=== PATIENT | female | born 1975 | race Caucasian/White ===

== ENCOUNTER 2018-08-17 18:43 | Inpatient (IN) | payer BC, SELFPAY ==
[2018-08-17] VITALS (15 sets, daily range): BP systolic 114–146; BP diastolic 62–111; PULSE 54–80; RESP 12–30; TEMP 36.3–37; O2SAT 81–100
[2018-08-17] MEDS: HYDROmorphone 2 MG/ML VIAL 1 MG IVP ×2 (19:24→19:57)
[2018-08-17] MEDS: Ondansetron 4 MG/2 ML VIAL IVP (19:25)
[2018-08-17] MEDS: Lactated Ringers 1,000 ML 125 ML IV (19:25)
[2018-08-17 19:41] LABS: Abs Immature Grans 0.07 k/cumm (0.0-0.09); Absolute Basophil Count 0.09 k/cumm (0.0-0.2); Absolute Eosinophil Count 0.27 k/cumm (0.0-0.7); Absolute Lymphocyte Count 3.19 k/cumm (1.2-3.4); Absolute Monocyte Count 0.87 k/cumm (0.11-0.7); Absolute Neutrophil Count 10.33 k/cumm (1.2-6.7); Basophils % 0.6; Eosinophils % 1.8; HCT 42.7 % (36.0-46.0); HGB 14.7 g/dL (12.0-15.5); Immature Grans % 0.5; Lactate 2.7 mmol/L (0.6-1.4); Lymphocytes % 21.5; Mean Corp. HGB Concentration 34.4 g/dL (32.0-36.0); Mean Corpuscular Hemoglobin 29.9 pg (27.0-33.0); Mean Corpuscular Volume 86.8 fL (80-95); Mean Platelet Volume 10.1 fL (8.0-11.0); Monocytes % 5.9; Neutrophils % 69.7; Platelet Count 354 x1000/uL (130-400); RBC 4.92 m/cumm (4.00-5.20); RBC Distribution Width 13.1 % (11.7-14.6); White Blood Cell Count 14.82 k/cumm (4.4-10.8)
--- NOTE | 2018-08-17 19:49 | DI.CT_ITS ---
SYMPTOM/DIAGNOSIS: RUQ ABDOMINAL TENDERNESS AND PAIN CT ABDOMEN AND PELVIS: The gallbladder is distended and shows mild wall thickening. A few stones are seen. There is mild intra and extra hepatic biliary dilatation. The pancreas, liver, spleen, and adrenals are unremarkable. There are a few small renal cysts. There is no evidence of stones or hydronephrosis. The bladder, uterus and ovaries are unremarkable. Tubal ligation clips are noted. The appendix appears normal. There is no bowel dilatation or inflammatory change. IMPRESSION: Distended gallbladder with a few stones. The findings could represent acute cholecystitis.
--- NOTE | 2018-08-17 19:50 | W.ED.GENAD ---
Discharge Plan Disposition Patient Disposition: [facility] INPATIENT Condition: Stable Discharge Details Chief Complaint: Abd Prob Clinical Impression: Acute abdominal pain in right upper quadrant, Lactic acid acidosis, Leukocytosis (leucocytosis) Primary Care Provider: ELIEZER DUFFY ED Provider: Mic Duran Home Meds and New Rx's Prescriptions: No Action montelukast [Singulair] 10 MG tablet 10 mg PO DAILY RF: 0 Zyrtec 10 MG capsule 10 mg PO DAILY RF: 0 albuterol sulfate 8.5 GM HFA aerosol inhaler 2 puff Inhalation PRN RF: 0 Medical Decision Making 19:50 --42-year-old female presents with severe right upper quadrant abdominal pain and associated nausea. Patient writhing in pain on initial exam. IV access was obtained and she was administered Dilaudid 1 mg IV and zofran IV. Pain did improve initially. Now returning. Will give additional dilaudid. Bedside [id number] ultrasound reveals dilated gallbladder with gallstones. Labs reviewed and leukocytosis and lactic acidosis noted. Plan to give crystalloid bolus. Awaiting chemistry. I have called to request pharmacy technologist but does not seem likely of technologist availability. Plan to obtain CT of the abdomen pelvis to assess for acute surgical pathology. I called and spoke with Dr. Fairbanks, relayed ED presentation and course and requested consult. 20:30 -- Care transitioned to Dr. Fairbanks who is ordering abx, will follow-up on CT and admit the patient. [facility] General Date/Time Provider Initiated Documentation: 08/17/18 19:14. Limitations to Documentation: no limitations. Information obtained by: patient. HPI Narrative: 42 yo f with history of asthma presents with chief complaint of abdominal pain. Patient notes around 230 today she suddenly developed severe right upper quadrant abdominal pain. Pain has waxed and waned but remains severe. Pain is described as sharp. Worse in certain positions. Worse with deep breath. She has associated nausea. Patient notes pain started after meal that was heavy in fat. Patient has had similar symptoms, less severe, over the past few months after having dinner. Patient notes that she drinks alcohol infrequently and did have some alcohol last night. Related Data Home Medications Medication Instructions Recorded Confirmed Zyrtec 10 mg PO DAILY 03/06/14 08/17/18 albuterol sulfate 2 puff INHALATION PRN 03/06/14 08/17/18 montelukast [Singulair] 10 mg PO DAILY 03/06/14 08/17/18 Allergies Allergy/AdvReac Type Severity Reaction Status Date / Time Penicillins Allergy Severe Anaphylaxsi Unverified 08/17/18 18:57 s General Stated Complaint: Abd Prob MINDA: 3 Review of Systems Review of Systems All systems reviewed & are unremarkable except as noted in HPI and below Constitutional Denies fever(s) Cardiovascular Denies chest pain and Denies dyspnea Respiratory Denies dyspnea Gastrointestinal Reports as per HPI [facility] Medical History Asthma (Chronic) Surgical History Ligation of fallopian tube Social History Smoking/Tobacco Use Status: Never Exam Const General: cooperative and uncomfortable Orientation: alert and awake HENMT Head: normocephalic and atraumatic Mouth: moist mucous membranes Eyes Conjunctivae: normal conjunctivae Sclera: normal sclerae EOM: EOM intact bilaterally Neck Neck: no JVD Resp Auscultation: clear to auscultation bilaterally, no rales, no rhonchi and no wheezes Cardio Jugular venous pressure: no JVD Rate: regular rate and not tachycardic Rhythm: regular rhythm GI Palpation: soft, not firm, no guarding, no masses, not rigid and tender in the RUQ and Gee's sign positive; with no rebound tenderness Auscultation: normal bowel sounds Skin General skin exam: no rashes or lesions noted Neuro General: alert, awake, oriented x3 and tone normal Extrem General: no edema Psych Appearance: grossly normal Mental Status: mental status grossly normal Speech and Movement: speech and movement normal Course Vital Signs Temperature 37.0 C 08/17/18 18:50 Pulse 64 08/17/18 18:50 Respiratory Rate 22 08/17/18 18:50 Blood Pressure 146/111 H 08/17/18 18:50 Pulse Oximetry 100 08/17/18 18:50 Temperature 37.0 C 08/17/18 18:50 Temperature Source Temporal Artery Scan 08/17/18 18:50 Pulse 64 08/17/18 18:50 Respiratory Rate 22 08/17/18 18:50 Respiratory Effort 08/17/18 18:50 Blood Pressure 146/111 H 08/17/18 18:50 Pulse Oximetry 100 08/17/18 18:50 Oxygen Delivery Method Room Air 08/17/18 18:50 Oxygen Flow Rate 0 08/17/18 18:50 Pain Level 10 08/17/18 19:24 Lab/Test Results Lab/Test Results: Laboratory Tests Range/Units 08/17/18 08/17/18 19:25 19:25 WBC (4.4-10.8) k/cumm 14.82 H RBC (4.00-5.20) m/cumm 4.92 Hgb (12.0-15.5) g/dL 14.7 Hct (36.0-46.0) % 42.7 MCV (80-95) fL 86.8 MCH (27.0-33.0) pg 29.9 MCHC (32.0-36.0) g/dL 34.4 RDW (11.7-14.6) % 13.1 Plt Count (130-400) x1000/uL 354 MPV (8.0-11.0) fL 10.1 Immature Gran % 0.5 Neutrophils % 69.7 Lymphocytes % 21.5 Monocytes % 5.9 Eosinophils % 1.8 Basophils % 0.6 Absolute Neutrophils (1.2-6.7) k/cumm 10.33 H Absolute Lymphocytes (1.2-3.4) k/cumm 3.19 Absolute Monocytes (0.11-0.7) k/cumm 0.87 H Absolute Eosinophils (0.0-0.7) k/cumm 0.27 Absolute Basophils (0.0-0.2) k/cumm 0.09 Lactate (0.6-1.4) mmol/L 2.7 H*
--- NOTE | 2018-08-17 19:53 | ED.GENADUL_ITS ---
Discharge Plan Disposition Patient Disposition: [facility] INPATIENT Condition: Stable Discharge Details Chief Complaint: Abd Prob Clinical Impression: Acute abdominal pain in right upper quadrant, Lactic acid acidosis, Leukocytosis (leucocytosis) Primary Care Provider: ELIEZER DUFFY ED Provider: Mic Duran Home Meds and New Rx's Prescriptions: No Action montelukast [Singulair] 10 MG tablet 10 mg PO DAILY RF: 0 Zyrtec 10 MG capsule 10 mg PO DAILY RF: 0 albuterol sulfate 8.5 GM HFA aerosol inhaler 2 puff Inhalation PRN RF: 0 Medical Decision Making 19:50 --42-year-old female presents with severe right upper quadrant abdominal pain and associated nausea. Patient writhing in pain on initial exam. IV access was obtained and she was administered Dilaudid 1 mg IV and zofran IV. Pain did improve initially. Now returning. Will give additional dilaudid. Bedside [id number] ultrasound reveals dilated gallbladder with gallstones. Labs reviewed and leukocytosis and lactic acidosis noted. Plan to give crystalloid bolus. Awaiting chemistry. I have called to request electroencephalographic technologist but does not seem likely of technologist availability. Plan to obtain CT of the abdomen pelvis to assess for acute surgical pathology. I called and spoke with Dr. Fairbanks, relayed ED presentation and course and requested consult. 20:30 -- Care transitioned to Dr. Fairbanks who is ordering abx, will follow-up on CT and admit the patient. [facility] General Date/Time Provider Initiated Documentation: 08/17/18 19:14 . Limitations to Documentation: no limitations . Information obtained by: patient . HPI Narrative: 42 yo f with history of asthma presents with chief complaint of abdominal pain. Patient notes around 230 today she suddenly developed severe right upper quadrant abdominal pain. Pain has waxed and waned but remains severe. Pain is described as sharp. Worse in certain positions. Worse with deep breath. She has associated nausea. Patient notes pain started after meal that was heavy in fat. Patient has had similar symptoms, less severe, over the past few months after having dinner. Patient notes that she drinks alcohol infrequently and did have some alcohol last night. Related Data Home Medications Medication Instructions Recorded Confirmed Zyrtec 10 mg PO DAILY 03/06/14 08/17/18 albuterol sulfate 2 puff INHALATION PRN 03/06/14 08/17/18 montelukast [Singulair] 10 mg PO DAILY 03/06/14 08/17/18 Allergies Allergy/AdvReac Type Severity Reaction Status Date / Time Penicillins Allergy Severe Anaphylaxsi Unverified 08/17/18 18:57 s General Stated Complaint: Abd Prob MINDA: 3 Review of Systems Review of Systems All systems reviewed & are unremarkable except as noted in HPI and below Constitutional Denies fever(s) Cardiovascular Denies chest pain and Denies dyspnea Respiratory Denies dyspnea Gastrointestinal Reports as per HPI [facility] Medical History Asthma (Chronic) Surgical History Ligation of fallopian tube Social History Smoking/Tobacco Use Status: Never Exam Const General: cooperative and uncomfortable Orientation: alert and awake HENMT Head: normocephalic and atraumatic Mouth: moist mucous membranes Eyes Conjunctivae: normal conjunctivae Sclera: normal sclerae EOM: EOM intact bilaterally Neck Neck: no JVD Resp Auscultation: clear to auscultation bilaterally, no rales, no rhonchi and no wheezes Cardio Jugular venous pressure: no JVD Rate: regular rate and not tachycardic Rhythm: regular rhythm GI Palpation: soft, not firm, no guarding, no masses, not rigid and tender in the RUQ and Gee's sign positive; with no rebound tenderness Auscultation: normal bowel sounds Skin General skin exam: no rashes or lesions noted Neuro General: alert, awake, oriented x3 and tone normal Extrem General: no edema Psych Appearance: grossly normal Mental Status: mental status grossly normal Speech and Movement: speech and movement normal Course Vital Signs Temperature 37.0 C 08/17/18 18:50 Pulse 64 08/17/18 18:50 Respiratory Rate 22 08/17/18 18:50 Blood Pressure 146/111 H 08/17/18 18:50 Pulse Oximetry 100 08/17/18 18:50 Temperature 37.0 C 08/17/18 18:50 Temperature Source Temporal Artery Scan 08/17/18 18:50 Pulse 64 08/17/18 18:50 Respiratory Rate 22 08/17/18 18:50 Respiratory Effort 08/17/18 18:50 Blood Pressure 146/111 H 08/17/18 18:50 Pulse Oximetry 100 08/17/18 18:50 Oxygen Delivery Method Room Air 08/17/18 18:50 Oxygen Flow Rate 0 08/17/18 18:50 Pain Level 10 08/17/18 19:24 Lab/Test Results Lab/Test Results: Laboratory Tests Range/Units 08/17/18 08/17/18 19:25 19:25 WBC (4.4-10.8) k/cumm 14.82 H RBC (4.00-5.20) m/cumm 4.92 Hgb (12.0-15.5) g/dL 14.7 Hct (36.0-46.0) % 42.7 MCV (80-95) fL 86.8 MCH (27.0-33.0) pg 29.9 MCHC (32.0-36.0) g/dL 34.4 RDW (11.7-14.6) % 13.1 Plt Count (130-400) x1000/uL 354 MPV (8.0-11.0) fL 10.1 Immature Gran % 0.5 Neutrophils % 69.7 Lymphocytes % 21.5 Monocytes % 5.9 Eosinophils % 1.8 Basophils % 0.6 Absolute Neutrophils (1.2-6.7) k/cumm 10.33 H Absolute Lymphocytes (1.2-3.4) k/cumm 3.19 Absolute Monocytes (0.11-0.7) k/cumm 0.87 H Absolute Eosinophils (0.0-0.7) k/cumm 0.27 Absolute Basophils (0.0-0.2) k/cumm 0.09 Lactate (0.6-1.4) mmol/L 2.7 H*
[2018-08-17 19:54] LABS: ALT 18 U/L (12-78); AST 15 U/L (15-37); Albumin 4.4 g/dL (3.4-5.0); Alkaline Phosphatase 105 U/L (46-116); Anion Gap 15.3 mmol/L (3-11); BUN 17 mg/dL (7-18); Bilirubin, Total 0.4 mg/dL (0.2-1.0); CO2 25.7 mmol/L (21.0-32.0); CREATININE 1.05 mg/dL (0.55-1.02); Calcium 9.6 mg/dL (8.5-10.1); Chloride 100 mmol/L (98-107); Estimated GFR 57.47 (mL/min/1.73m2); Glucose 109 mg/dL (70-100); Lipase 267 U/L (73-393); Potassium 3.1 mmol/L (3.5-5.1); Sodium 141 mmol/L (136-145); Total Protein 8.6 g/dL (6.4-8.2)
[2018-08-17] MEDS: Lactated Ringers 1,000 ML 1000 ML IV (20:15)
--- NOTE | 2018-08-17 20:23 | W.PM.HP.N ---
Date of service: 08/17/18 Time of Service: 20:24 Assessment and Plan (1) Acute abdominal pain in right upper quadrant: Start date: 08/17/18 Start time: 20:29 Current visit: Yes Status: Acute pt condition, exam and labs are consistent with acute cholecystitis pt to get CT start iv antibiotics IVF-LR 125cc/hr bedside US done +murphys sign, ?sludge would like a formal in am to better visualize the GB (2) Lactic acid acidosis: Start date: 08/17/18 Start time: 20:30 Current visit: Yes Status: Acute IVF hydration and antibiotics (3) High anion gap metabolic acidosis: Start date: 08/17/18 Start time: 20:31 Current visit: Yes Status: Acute ivf (4) Leukocytosis (leucocytosis): Start date: 08/17/18 Start time: 20:32 Current visit: Yes Status: Acute start antibiotics (5) Hypokalemia: Start date: 08/17/18 Start time: 20:31 Current visit: Yes Status: Acute will replace History of Present Illness Chief Complaint: pt was eating sloopy joes, turkmen fries, brownie and spiked seltzer Narrative: presents with ruq pain she claims she has had this pain before Review of Systems Constitutional Reports as per HPI Gastrointestinal Reports as per HPI and Reports abdominal pain PFSH Surgical History Ligation of fallopian tube Social History Smoking/Tobacco Use Status: Never Meds Home Medications Medication Instructions Recorded Confirmed Type Zyrtec 10 mg PO DAILY 03/06/14 08/17/18 History albuterol sulfate 2 puff INHALATION PRN 03/06/14 08/17/18 History montelukast [Singulair] 10 mg PO DAILY 03/06/14 08/17/18 History Allergies Allergy/AdvReac Type Severity Reaction Status Date / Time Penicillins Allergy Severe Anaphylaxsi Unverified 08/17/18 18:57 s Exam Const General: cooperative Nutritional Appearance: obese Orientation: alert, awake and oriented x3 GI Inspection: normal to inspection and obesity Palpation: guarding in the RUQ Percussion: normal to percussion Auscultation: normal bowel sounds Abdomen image: 1. pain Results Labs : 08/17/18 19:25 08/17/18 19:25 Laboratory Results - last 24 hr 08/17/18 08/17/18 08/17/18 19:25 19:25 19:25 WBC 14.82 H RBC 4.92 Hgb 14.7 Hct 42.7 MCV 86.8 MCH 29.9 MCHC 34.4 RDW 13.1 Plt Count 354 MPV 10.1 Immature Gran % 0.5 Neutrophils % 69.7 Lymphocytes % 21.5 Monocytes % 5.9 Eosinophils % 1.8 Basophils % 0.6 Absolute Neutrophils 10.33 H Absolute Lymphocytes 3.19 Absolute Monocytes 0.87 H Absolute Eosinophils 0.27 Absolute Basophils 0.09 Sodium 141 Potassium 3.1 L Chloride 100 Carbon Dioxide 25.7 Anion Gap 15.3 H BUN 17 Creatinine 1.05 H Estimated GFR/1.73 m2 57.47 Glucose 109 H Lactate 2.7 H* Calcium 9.6 Total Bilirubin 0.4 AST 15 ALT 18 Alkaline Phosphatase 105 Total Protein 8.6 H Albumin 4.4 Lipase 267 Last Vital Signs Temp 37.0 C 08/17/18 18:50 Pulse 64 08/17/18 18:50 Resp 22 08/17/18 18:50 BP 146/111 H 08/17/18 18:50 Pulse Ox 100 08/17/18 18:50
[2018-08-17] MEDS: Omnipaque 350 MG/ML 100 ML BTL IJ (21:09)
[2018-08-17] MEDS: MetroNIDAZOLE 500 MG/100 ML BAG 100 MG IVPB (21:22)
--- NOTE | 2018-08-17 21:41 | DI.VRAD_ITS ---
EXAM: CT Abdomen and Pelvis With Contrast EXAM DATE/TIME: 08/17/2018 7:50 PM CLINICAL HISTORY: 42 years old, female; Pain; Abdominal pain; Localized; Right upper quadrant (ruq); Additional info: Ruq abdominal tenderness and pain TECHNIQUE: Axial computed tomography images of the abdomen and pelvis with intravenous contrast. All CT scans at this facility use at least one of these dose optimization techniques: automated exposure control; mA and/or kV adjustment per patient size (includes targeted exams where dose is matched to clinical indication); or iterative reconstruction. Coronal and sagittal reformatted images were created and reviewed. CONTRAST: 100 ml of omni 350 administered intravenously. COMPARISON: No relevant prior studies available. FINDINGS: Lower thorax: No acute findings. ABDOMEN: Liver: Liver is enlarged measuring 21 cm. No acute liver pathology noted. Gallbladder and bile ducts: Multiple calcified gallstones are present. Mild gallbladder wall thickening is suggested. Gallbladder is hydropic. Mild intra-extra hepatic biliary ductal dilation. CBD measures 1 cm. Pancreas: Normal. No ductal dilation. Spleen: Normal. No splenomegaly. Adrenals: Normal. No mass. Kidneys and ureters: Left renal cyst incidentally noted. Kidneys are otherwise unremarkable. No acute renal pathology. Stomach and bowel: No bowel wall thickening, obstruction, or other acute pathology. Diffuse colonic diverticulosis is present. There is no evidence of intestinal perforation or obstruction. Appendix: No evidence of appendicitis. PELVIS: Bladder: Unremarkable as visualized. Reproductive: Corpus luteum cyst in the left adnexa. Reproductive organs are otherwise unremarkable. Patient status post bilateral tubal ligation. ABDOMEN and PELVIS: Intraperitoneal space: Small amount of free fluid in the cul-de-sac is most likely physiologic. Bones/joints: No acute skeletal pathology. Mild multilevel degenerative changes of the spine, as manifested by multilevel anterior osteophytes and multilevel decrease in intervertebral disc space. Soft tissues: Unremarkable. Vasculature: Normal. No abdominal aortic aneurysm. Lymph nodes: Normal. No enlarged lymph nodes. IMPRESSION: 1. Findings highly concerning for acute cholecystitis with associated mild intra-/extrahepatic biliary ductal dilation. Correlation with ultrasound recommended. 2. Other incidental findings as detailed above. Dictated and Authenticated by: Chaparro Weiner MD. Ordering:TARI Haile MD
--- NOTE | 2018-08-17 21:45 | W.PM.PROGNOT ---
Date of Service Date of service: 08/17/18 Time of Service: 21:45 Assessment and Plan (1) Acute cholecystitis: Start date: 08/17/18 Start time: 21:45 Current visit: Yes Status: Acute ct look like acute rosalia will get us in am start antibiotics ivf Subjective Patient reports: vomiting Objective Objective Clinical Data: Abnormal lab results 08/17/18 08/17/18 08/17/18 Range/Units 19:25 19:25 19:25 WBC 14.82 H (4.4-10.8) k/cumm Absolute Neutrophils 10.33 H (1.2-6.7) k/cumm Absolute Monocytes 0.87 H (0.11-0.7) k/cumm Potassium 3.1 L (3.5-5.1) mmol/L Anion Gap 15.3 H (3-11) mmol/L Creatinine 1.05 H (0.55-1.02) mg/dL Glucose 109 H (70-100) mg/dL Lactate 2.7 H* (0.6-1.4) mmol/L Total Protein 8.6 H (6.4-8.2) g/dL Vital Signs Temperature 37.0 C 08/17/18 18:50 Temperature Source Temporal Artery Scan 08/17/18 18:50 Pulse 68 08/17/18 20:16 Pulse 71 08/17/18 20:20 Respiratory Rate 18 08/17/18 20:20 Respiratory Effort 08/17/18 18:50 Blood Pressure 119/73 08/17/18 20:16 Blood Pressure Mean 85 08/17/18 20:16 Pulse Oximetry 90 L 08/17/18 20:20 Oxygen Delivery Method Room Air 08/17/18 18:50 Oxygen Flow Rate 0 08/17/18 18:50 Pain Level 5 08/17/18 19:57 Intake & Output 08/16/18 08/17/18 08/17/18 23:59 11:59 23:59 Intake Total 1000.000 / 1000.000 Balance 1000.000 / 1000.000 Weight 90.718 kg Intake: IV 1000.000 / 1000.000 Laboratory Results WBC 14.82 k/cumm (4.4-10.8) H 08/17/18 19:25 RBC 4.92 m/cumm (4.00-5.20) 08/17/18 19:25 Hgb 14.7 g/dL (12.0-15.5) 08/17/18 19:25 Hct 42.7 % (36.0-46.0) 08/17/18 19:25 MCV 86.8 fL (80-95) 08/17/18 19:25 MCH 29.9 pg (27.0-33.0) 08/17/18 19:25 MCHC 34.4 g/dL (32.0-36.0) 08/17/18 19:25 RDW 13.1 % (11.7-14.6) 08/17/18 19:25 Plt Count 354 x1000/uL (130-400) 08/17/18 19:25 MPV 10.1 fL (8.0-11.0) 08/17/18 19:25 Immature Gran % 0.5 08/17/18 19:25 Neutrophils % 69.7 08/17/18 19:25 Lymphocytes % 21.5 08/17/18 19:25 Monocytes % 5.9 08/17/18 19:25 Eosinophils % 1.8 08/17/18 19:25 Basophils % 0.6 08/17/18 19:25 Absolute Neutrophils 10.33 k/cumm (1.2-6.7) H 08/17/18 19:25 Absolute Lymphocytes 3.19 k/cumm (1.2-3.4) 08/17/18 19:25 Absolute Monocytes 0.87 k/cumm (0.11-0.7) H 08/17/18 19:25 Absolute Eosinophils 0.27 k/cumm (0.0-0.7) 08/17/18 19:25 Absolute Basophils 0.09 k/cumm (0.0-0.2) 08/17/18 19:25 Sodium 141 mmol/L (136-145) 08/17/18 19:25 Potassium 3.1 mmol/L (3.5-5.1) L 08/17/18 19:25 Chloride 100 mmol/L (98-107) 08/17/18 19:25 Carbon Dioxide 25.7 mmol/L (21.0-32.0) 08/17/18 19:25 Anion Gap 15.3 mmol/L (3-11) H 08/17/18 19:25 BUN 17 mg/dL (7-18) 08/17/18 19:25 Creatinine 1.05 mg/dL (0.55-1.02) H 08/17/18 19:25 Estimated GFR/1.73 m2 57.47 (mL/min/1.73m2) 08/17/18 19:25 Glucose 109 mg/dL (70-100) H 08/17/18 19:25 Lactate 2.7 mmol/L (0.6-1.4) H* 08/17/18 19:25 Calcium 9.6 mg/dL (8.5-10.1) 08/17/18 19:25 Total Bilirubin 0.4 mg/dL (0.2-1.0) 08/17/18 19:25 AST 15 U/L (15-37) 08/17/18 19:25 ALT 18 U/L (12-78) 08/17/18 19:25 Alkaline Phosphatase 105 U/L (46-116) 08/17/18 19:25 Total Protein 8.6 g/dL (6.4-8.2) H 08/17/18 19:25 Albumin 4.4 g/dL (3.4-5.0) 08/17/18 19:25 Lipase 267 U/L (73-393) 08/17/18 19:25 Patient ABO/Rh B Negative 08/17/18:33 Antibody Screen Negative 08/17/18:33
[2018-08-17] MEDS: CIPROFLOXACIN 400 MG/200 ML BAG 200 MG IVPB (22:36)
--- NOTE | 2018-08-18 00:25 | NUR.NOTE ---
Patient admitted since night from the Emergency Room, with history of right upper quadrant pain since today. She gave History of pain starting from during the daytime, she contributed that to eating a lot of, comfort foods last evening. On assessment female in discomfort due to being nauseated, she is conscious, alert, rational, oriented x 3. present with patient. She denies pain at this time. Lung sounds clear, abdomen obese and tenderness voiced to the right upper quadrant when lightly palpated. 20G noted to the right AC. NAD to the lower extremities. Patient placed in bed, oriented to room
[2018-08-18] MEDS: Lactated Ringers 1,000 ML 125 ML IV ×2 (01:26→13:30)
[2018-08-18] MEDS: MetroNIDAZOLE 500 MG/100 ML BAG 100 MG IVPB ×3 (03:44→21:00)
[2018-08-18] MEDS: HYDROmorphone 2 MG/ML VIAL IVP (05:43)
[2018-08-18] MEDS: Normal Saline Flush 10 ML SYR IVP (05:43)
[2018-08-18 07:50] VITALS: BP 100/64; PULSE 56; RESP 20; TEMP 37.4; O2SAT 98
[2018-08-18 08:04] LABS: Abs Immature Grans 0.04 k/cumm (0.0-0.09); Absolute Basophil Count 0.04 k/cumm (0.0-0.2); Absolute Eosinophil Count 0.05 k/cumm (0.0-0.7); Absolute Lymphocyte Count 1.73 k/cumm (1.2-3.4); Absolute Monocyte Count 0.61 k/cumm (0.11-0.7); Basophils % 0.3; Eosinophils % 0.4; HCT 35.5 % (36.0-46.0); Immature Grans % 0.3; Mean Corp. HGB Concentration 33.8 g/dL (32.0-36.0); Mean Corpuscular Hemoglobin 30.2 pg (27.0-33.0); Mean Corpuscular Volume 89.2 fL (80-95); Monocytes % 4.9; Neutrophils % 80.1; Platelet Count 252 x1000/uL (130-400); RBC 3.98 m/cumm (4.00-5.20); White Blood Cell Count 12.35 k/cumm (4.4-10.8)
[2018-08-18 08:10] LABS: Lactate-non-spesis 0.9 mmol/l (0.6-1.4)
[2018-08-18 08:15] LABS: Absolute Neutrophil Count 9.89 k/cumm (1.2-6.7)
[2018-08-18 08:21] LABS: ALT 13 U/L (12-78); AST 9 U/L (15-37); Albumin 3.1 g/dL (3.4-5.0); Alkaline Phosphatase 67 U/L (46-116); Anion Gap 8.9 mmol/L (3-11); BUN 9 mg/dL (7-18); Bilirubin, Total 0.4 mg/dL (0.2-1.0); CO2 27.1 mmol/L (21.0-32.0); CREATININE 0.74 mg/dL (0.55-1.02); Calcium 8.3 mg/dL (8.5-10.1); Chloride 105 mmol/L (98-107); Glucose 104 mg/dL (70-100); Potassium 3.8 mmol/L (3.5-5.1); Sodium 141 mmol/L (136-145); Total Protein 6.3 g/dL (6.4-8.2)
--- NOTE | 2018-08-18 08:48 | W.PM.PROGNOT ---
Date of Service Date of service: 08/18/18 Time of Service: 08:48 Assessment and Plan (1) Acute cholecystitis: Start date: 08/18/18 Start time: 08:49 Current visit: Yes Status: Acute pt responded well to antibiotics and IVF for US today cont iv antibiotic and ivf most likely OR in am Sunday (2) Lactic acid acidosis: Start date: 08/18/18 Start time: 08:52 Current visit: Yes Status: Resolved resolved with hydratrion (3) Leukocytosis (leucocytosis): Start date: 08/18/18 Start time: 08:52 Current visit: Yes Status: Acute improving less than admission will continue antibiotics Subjective Patient reports: no new complaints Interval history since last seen: N/V improved and pain less Exam Const General: cooperative Nutritional Appearance: average body habitus Orientation: alert, awake and oriented x3 GI Inspection: normal to inspection Palpation: soft and tender in the RUQ and Gee's sign positive Percussion: normal to percussion Objective Objective Clinical Data: Abnormal lab results 08/17/18 08/17/18 08/17/18 Range/Units 19:25 19:25 19:25 WBC 14.82 H (4.4-10.8) k/cumm RBC (4.00-5.20) m/cumm Hct (36.0-46.0) % Absolute Neutrophils 10.33 H (1.2-6.7) k/cumm Absolute Monocytes 0.87 H (0.11-0.7) k/cumm Potassium 3.1 L (3.5-5.1) mmol/L Anion Gap 15.3 H (3-11) mmol/L Creatinine 1.05 H (0.55-1.02) mg/dL Glucose 109 H (70-100) mg/dL Lactate 2.7 H* (0.6-1.4) mmol/L Calcium (8.5-10.1) mg/dL AST (15-37) U/L Total Protein 8.6 H (6.4-8.2) g/dL Albumin (3.4-5.0) g/dL 08/18/18 08/18/18 Range/Units 07:48 07:48 WBC 12.35 H (4.4-10.8) k/cumm RBC 3.98 L (4.00-5.20) m/cumm Hct 35.5 L (36.0-46.0) % Absolute Neutrophils 9.89 H (1.2-6.7) k/cumm Absolute Monocytes (0.11-0.7) k/cumm Potassium (3.5-5.1) mmol/L Anion Gap (3-11) mmol/L Creatinine (0.55-1.02) mg/dL Glucose 104 H (70-100) mg/dL Lactate (0.6-1.4) mmol/L Calcium 8.3 L (8.5-10.1) mg/dL AST 9 L (15-37) U/L Total Protein 6.3 L (6.4-8.2) g/dL Albumin 3.1 L (3.4-5.0) g/dL Vital Signs Temperature 36.3 C L 08/17/18 21:40 Temperature Source Temporal Artery Scan 08/17/18 18:50 Pulse 80 08/17/18 21:40 Pulse Rhythm Regular 08/17/18 21:40 Pulse 71 08/17/18 20:20 Respiratory Rate 24 08/17/18 21:40 Respiratory Effort 08/17/18 21:40 Respiratory Depth Normal 08/17/18 21:40 Respiratory Pattern Normal 08/17/18 21:40 Blood Pressure 126/66 08/17/18 21:40 Blood Pressure Mean 85 08/17/18 20:16 Pulse Oximetry 100 08/17/18 21:40 Oxygen Delivery Method Room Air 08/17/18 21:40 Oxygen Flow Rate 0 08/17/18 21:40 Pain Level 0 08/17/18 23:54 Intake & Output 08/17/18 08/17/18 08/18/18 11:59 23:59 11:59 Intake Total 2350.500 / 2350.500 100 / 100 Balance 2350.500 / 2350.500 100 / 100 Weight 90.718 kg Intake: IV 2350.500 / 2350.500 100 / 100 Laboratory Results WBC 12.35 k/cumm (4.4-10.8) H 08/18/18 07:48 RBC 3.98 m/cumm (4.00-5.20) L 08/18/18 07:48 Hgb 12.0 g/dL (12.0-15.5) D 08/18/18 07:48 Hct 35.5 % (36.0-46.0) L 08/18/18 07:48 MCV 89.2 fL (80-95) 08/18/18 07:48 MCH 30.2 pg (27.0-33.0) 08/18/18 07:48 MCHC 33.8 g/dL (32.0-36.0) 08/18/18 07:48 RDW 13.0 % (11.7-14.6) 08/18/18 07:48 Plt Count 252 x1000/uL (130-400) D 08/18/18 07:48 MPV 10.0 fL (8.0-11.0) 08/18/18 07:48 Immature Gran % 0.3 08/18/18 07:48 Neutrophils % 80.1 08/18/18 07:48 Lymphocytes % 14.0 08/18/18 07:48 Monocytes % 4.9 08/18/18 07:48 Eosinophils % 0.4 08/18/18 07:48 Basophils % 0.3 08/18/18 07:48 Absolute Neutrophils 9.89 k/cumm (1.2-6.7) H 08/18/18 07:48 Absolute Lymphocytes 1.73 k/cumm (1.2-3.4) 08/18/18 07:48 Absolute Monocytes 0.61 k/cumm (0.11-0.7) 08/18/18 07:48 Absolute Eosinophils 0.05 k/cumm (0.0-0.7) 08/18/18 07:48 Absolute Basophils 0.04 k/cumm (0.0-0.2) 08/18/18 07:48 Sodium 141 mmol/L (136-145) 08/18/18 07:48 Potassium 3.8 mmol/L (3.5-5.1) D 08/18/18 07:48 Chloride 105 mmol/L (98-107) 08/18/18 07:48 Carbon Dioxide 27.1 mmol/L (21.0-32.0) 08/18/18 07:48 Anion Gap 8.9 mmol/L (3-11) 08/18/18 07:48 BUN 9 mg/dL (7-18) D 08/18/18 07:48 Creatinine 0.74 mg/dL (0.55-1.02) 08/18/18 07:48 Estimated GFR/1.73 m2 >= 60.00 (mL/min/1.73m2) 08/18/18 07:48 Glucose 104 mg/dL (70-100) H 08/18/18 07:48 Lactate 0.9 mmol/l (0.6-1.4) 08/18/18 07:48 Calcium 8.3 mg/dL (8.5-10.1) L 08/18/18 07:48 Total Bilirubin 0.4 mg/dL (0.2-1.0) 08/18/18 07:48 AST 9 U/L (15-37) L 08/18/18 07:48 ALT 13 U/L (12-78) 08/18/18 07:48 Alkaline Phosphatase 67 U/L (46-116) 08/18/18 07:48 Total Protein 6.3 g/dL (6.4-8.2) L 08/18/18 07:48 Albumin 3.1 g/dL (3.4-5.0) L 08/18/18 07:48 Lipase 267 U/L (73-393) 08/17/18 19:25 Patient ABO/Rh B Negative 08/17/18 19:33 Antibody Screen Negative 08/17/18 19:33
--- NOTE | 2018-08-18 09:06 | DI.US_ITS ---
SYMPTOM/DIAGNOSIS: RUQ PAIN ABDOMEN ULTRASOUND: Comparison is made with CT performed the previous day. The gallbladder shows some distension and borderline wall thickening. Multiple layering stones are seen. No biliary dilatation is demonstrated. The common bile duct measures 4 mm. No common duct stones are seen. The liver, spleen and pancreas are unremarkable. A cyst is noted on the left kidney. There is no evidence of hydronephrosis. There is no ascites. IMPRESSION: Cholelithiasis. Question of borderline gallbladder wall thickening and distension. Clinical correlation is recommended.
[2018-08-18 09:53] LABS: Lipase 162 U/L (73-393)
[2018-08-18] MEDS: CIPROFLOXACIN 400 MG/200 ML BAG 200 MG IVPB ×2 (09:57→22:16)
--- NOTE | 2018-08-18 10:02 | DI.VRAD_ITS ---
EXAM: US Abdomen Complete EXAM DATE/TIME: 08/18/2018 9:38 AM CLINICAL HISTORY: 42 years old, female; Pain; Abdominal pain; Acute TECHNIQUE: Real-time ultrasound of the abdomen with image documentation. COMPARISON: CT Private^ROUTINE ABDOMEN PELVIS WITH CONTRAST (Adult) 08/17/2018 8:56 PM FINDINGS: Liver: Hepatomegaly 15.6 cm Gallbladder: Gallstones in the gallbladder. Gallbladder wall 2.5 mm. The gallbladder measures 8.2 cm. Common bile duct: Common bile duct 4 mm. Pancreas: Visualized pancreas is unremarkable. Right kidney: The right kidney 11.5 cm. No hydronephrosis Left kidney: Left kidney 10.7 cm. No hydronephrosis. 2.1 cm hypoechoic structure in the left kidney may represent left renal cyst Spleen: Spleen 11 cm Aorta: Proximal aorta 2.1 cm. Inferior vena cava: Normal. Portal venous: Antegrade flow in the portal vein IMPRESSION: 1. Gallstones in the gallbladder. Normal Gallbladder wall 2.5 mm. The gallbladder measures 8.2 cm. 2. Normal Common bile duct 4 mm. Dictated and Authenticated by: Ida Dong MD. Ordering:LUDIVINA Dacosta MD
[2018-08-18 16:07] VITALS: BP 113/68; PULSE 64; RESP 17; TEMP 37.2; O2SAT 97
[2018-08-18] MEDS: ACETAMINOPHEN 1,000 MG/100 ML BTL 400 MG IVPB (20:01)
[2018-08-18 23:51] VITALS: BP 98/68; PULSE 68; RESP 17; TEMP 37.2; O2SAT 97
[2018-08-19] VITALS (10 sets, daily range): BP systolic 111–121; BP diastolic 64–81; PULSE 53–65; RESP 12–20; TEMP 36.5–36.7; O2SAT 96–99
[2018-08-19] MEDS: Lactated Ringers 1,000 ML 125 ML IV ×3 (00:18→15:42)
[2018-08-19] MEDS: MetroNIDAZOLE 500 MG/100 ML BAG 100 MG IVPB ×3 (04:31→19:50)
--- NOTE | 2018-08-19 07:08 | W.PM.PROGNOT ---
Date of Service Date of service: 08/19/18 Time of Service: 07:08 Assessment and Plan (1) Acute cholecystitis: Start date: 08/19/18 Start time: 07:08 Current visit: Yes Status: Acute for OR today Subjective Patient reports: no new complaints Exam Const General: cooperative Nutritional Appearance: average body habitus Orientation: alert, awake and oriented x3 GI Inspection: normal to inspection Palpation: soft Percussion: normal to percussion Auscultation: normal bowel sounds Objective Objective Clinical Data: Abnormal lab results 08/18/18 08/18/18 Range/Units 07:48 07:48 WBC 12.35 H (4.4-10.8) k/cumm RBC 3.98 L (4.00-5.20) m/cumm Hct 35.5 L (36.0-46.0) % Absolute Neutrophils 9.89 H (1.2-6.7) k/cumm Glucose 104 H (70-100) mg/dL Calcium 8.3 L (8.5-10.1) mg/dL AST 9 L (15-37) U/L Total Protein 6.3 L (6.4-8.2) g/dL Albumin 3.1 L (3.4-5.0) g/dL Vital Signs Temperature 37.2 C 08/18/18 23:51 Temperature Source Tympanic 08/18/18 23:51 Pulse 68 08/18/18 23:51 Pulse Rhythm Regular 08/19/18 00:18 Pulse 71 08/17/18 20:20 Respiratory Rate 17 08/18/18 23:51 Respiratory Effort 08/19/18 00:18 Respiratory Depth Normal 08/19/18 00:18 Respiratory Pattern Normal 08/19/18 00:18 Blood Pressure 98/68 L 08/18/18 23:51 Blood Pressure Mean 85 08/17/18 20:16 Pulse Oximetry 97 08/18/18 23:51 Oxygen Delivery Method Room Air 08/18/18 23:51 Oxygen Flow Rate 0 08/18/18 23:51 Pain Level 0 08/18/18 07:50 Intake & Output 08/18/18 08/18/18 08/19/18 11:59 23:59 11:59 Intake Total 1350.500 / 2663.000 1312.5 / 2663.000 0 / 0 Output Total 1000 / 1000 Balance 350.500 / 7240.883 0824.5 / 1663.000 0 / 0 Intake: IV 1350.500 / 2663.000 1312.5 / 2663.000 0 / 0 Output: Urine 1000 / 1000 Other: Urine Color Light Isabell Urine Appearance Clear Clear Urine Odor Normal Comment Family had removed collection hat from toilet. States voided a large amount earlier this afternoon and states she probably would have filled the collection hat. Explained we need to measure I&O's. Voiding Methods Toilet Toilet Laboratory Results WBC 12.35 k/cumm (4.4-10.8) H 08/18/18 07:48 RBC 3.98 m/cumm (4.00-5.20) L 08/18/18 07:48 Hgb 12.0 g/dL (12.0-15.5) D 08/18/18 07:48 Hct 35.5 % (36.0-46.0) L 08/18/18 07:48 MCV 89.2 fL (80-95) 08/18/18 07:48 MCH 30.2 pg (27.0-33.0) 08/18/18 07:48 MCHC 33.8 g/dL (32.0-36.0) 08/18/18 07:48 RDW 13.0 % (11.7-14.6) 08/18/18 07:48 Plt Count 252 x1000/uL (130-400) D 08/18/18 07:48 MPV 10.0 fL (8.0-11.0) 08/18/18 07:48 Immature Gran % 0.3 08/18/18 07:48 Neutrophils % 80.1 08/18/18 07:48 Lymphocytes % 14.0 08/18/18 07:48 Monocytes % 4.9 08/18/18 07:48 Eosinophils % 0.4 08/18/18 07:48 Basophils % 0.3 08/18/18 07:48 Absolute Neutrophils 9.89 k/cumm (1.2-6.7) H 08/18/18 07:48 Absolute Lymphocytes 1.73 k/cumm (1.2-3.4) 08/18/18 07:48 Absolute Monocytes 0.61 k/cumm (0.11-0.7) 08/18/18 07:48 Absolute Eosinophils 0.05 k/cumm (0.0-0.7) 08/18/18 07:48 Absolute Basophils 0.04 k/cumm (0.0-0.2) 08/18/18 07:48 Sodium 141 mmol/L (136-145) 08/18/18 07:48 Potassium 3.8 mmol/L (3.5-5.1) D 08/18/18 07:48 Chloride 105 mmol/L (98-107) 08/18/18 07:48 Carbon Dioxide 27.1 mmol/L (21.0-32.0) 08/18/18 07:48 Anion Gap 8.9 mmol/L (3-11) 08/18/18 07:48 BUN 9 mg/dL (7-18) D 08/18/18 07:48 Creatinine 0.74 mg/dL (0.55-1.02) 08/18/18 07:48 Estimated GFR/1.73 m2 >= 60.00 (mL/min/1.73m2) 08/18/18 07:48 Glucose 104 mg/dL (70-100) H 08/18/18 07:48 Lactate 0.9 mmol/l (0.6-1.4) 08/18/18 07:48 Calcium 8.3 mg/dL (8.5-10.1) L 08/18/18 07:48 Total Bilirubin 0.4 mg/dL (0.2-1.0) 08/18/18 07:48 AST 9 U/L (15-37) L 08/18/18 07:48 ALT 13 U/L (12-78) 08/18/18 07:48 Alkaline Phosphatase 67 U/L (46-116) 08/18/18 07:48 Total Protein 6.3 g/dL (6.4-8.2) L 08/18/18 07:48 Albumin 3.1 g/dL (3.4-5.0) L 08/18/18 07:48 Lipase 162 U/L (73-393) 08/18/18 07:48 Patient ABO/Rh B Negative 08/17/18 19:33 Antibody Screen Negative 08/17/18 19:33
[2018-08-19] MEDS: CIPROFLOXACIN 400 MG/200 ML BAG 200 MG IVPB ×2 (09:54→22:11)
[2018-08-19] MEDS: Scopolamine 1 MG/3 DAYS PATCH TD (10:23)
--- NOTE | 2018-08-19 10:36 | PDOC.CMIN ---
- If Service Date Differs Date of service: 08/19/18 Time of Service: 10:37 Care Management Initial Assess REASON FOR HOSPITALIZATION:: Abdominal pain, RUQ, acute cholecystitis PAST MEDICAL HISTORY/PAST SURGICAL HISTORY:: Asthma. Surgical Hx: ligation of fallopian tube PREVIOUS FUNCTIONAL STATUS/SOCIAL/FAMILY SUPPORTS:: Jen lives at her home in [place] with her spouse and four children. 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 CURRENT FUNCTIONAL STATUS:: [facility]. She feels prepared for surgery on Sunday. She understands the procedure she states she has good support at home. She reports that her pain is being well controlled at this time. ADVANCE DIRECTIVES:: None on file Has patient been provided with information about the portal?: Yes Did the patient sign up for the portal?: No CODE STATUS:: Full Code INSURANCE COVERAGE / FINANCIAL ISSUES:: BCBS CURRENT HOME/COMMUNITY SERVICES/EQUIPMENT:: None at this time. PRIMARY CARE PHYSICIAN:: Court Mccormick POTENTIAL DISCHARGE NEEDS:: Follow up appointment with provider scheduled prrior to discharge. PATIENT/FAMILY EDUCATION NEEDS:: Discharge education, limitations and follow up plan of care inclduing ask me three and self management. ANTICIPATED BARRIERS TO DISCHARGE:: None identified at this time. TRANSPORTATION:: Via private car with spouse at time of discharge PLAN:: Jen is going to the OR today for lap rosalia she is receiving IV antibiotics. Plan will be for her to discharge home when medically ready per provider. Anticipate no services at time of discharge.
--- NOTE | 2018-08-19 11:33 | INITIAL_ITS ---
- If Service Date Differs Date of service: 08/19/18 Time of Service: 10:37 Care Management Initial Assess REASON FOR HOSPITALIZATION:: Abdominal pain, RUQ, acute cholecystitis PAST MEDICAL HISTORY/PAST SURGICAL HISTORY:: Asthma. Surgical Hx: ligation of fallopian tube PREVIOUS FUNCTIONAL STATUS/SOCIAL/FAMILY SUPPORTS:: Jen lives at her home in [place] with her spouse and four children. 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 She feels prepared for surgery on Sunday. She understands the procedure she states she has good support at home. She reports that her pain is being well controlled at this time. ADVANCE DIRECTIVES:: None on file Has patient been provided with information about the portal?: Yes Did the patient sign up for the portal?: No CODE STATUS:: Full Code INSURANCE COVERAGE / FINANCIAL ISSUES:: BCBS CURRENT HOME/COMMUNITY SERVICES/EQUIPMENT:: None at this time. PRIMARY CARE PHYSICIAN:: Court Mccormick POTENTIAL DISCHARGE NEEDS:: Follow up appointment with provider scheduled prrior to discharge. PATIENT/FAMILY EDUCATION NEEDS:: Discharge education, limitations and follow up plan of care inclduing ask me three and self management. ANTICIPATED BARRIERS TO DISCHARGE:: None identified at this time. TRANSPORTATION:: Via private car with spouse at time of discharge PLAN:: Jen is going to the OR today for lap rosalia she is receiving IV antibiotics. Plan will be for her to discharge home when medically ready per provider. Anticipate no services at time of discharge.
[2018-08-19] MEDS: Lidocaine 1% Pres-Free 5 ML VIAL (12:30)
[2018-08-19] MEDS: Bupivacaine 0.25% Pres-Free 30 ML VIAL (12:30)
[2018-08-19] MEDS: Bupivacaine LIPOSOME/PF 133 MG/10 ML VIAL IJ (13:30)
--- NOTE | 2018-08-19 13:30 | GB_PTH ---
PATIENT: Jen Holt LOC: MS Pak#:[id number] AGE/SX: 42/F ROOM: RE08/17/[address]: Praneeth Fairbanks III : 1975 BED: A DIS: 08/20/2018 SPEC #: [id number] RECD: 08/19/18 18:03 STATUS: GARTH RECamila #: [id number] KENNY: 08/19/18 13:[address]: Praneeth Fairbanks III DEPT: Surgical Specimen RECD BY: Edyta Oseguera ENTERED: 08/19/18 18:03 SP TYPE: GB OTHR DR: Court Mccormick Tissues: 1 - GALLBLADDER Procedures: GROSS AND MICRO LEVEL 3 Comments: [id number]
--- NOTE | 2018-08-19 13:56 | ROE_ITS ---
Date of service: 08/19/18 Time of Service: 13:50 Operative Note DATE OF PROCEDURE: 08/19/18 PRE-OP DIAGNOSIS: acute rosalia POST-OP DIAGNOSIS: same PROCEDURE: lap rosalia SURGEON: Praneeth Fairbanks III ASSISTING SURGEON: Gavi Cates ANESTHESIA: GETA ESTIMATED BLOOD LOSS: 10 PATHOLOGY: other (GB) COMPLICATIONS: None Patient was transported to: PACU Patient's condition: stable Indications: acute rosalia Procedure Description: Patient came into the emergency room Sunday evening with an elevated white count of 14,000 and a lactate of 3. Patient had been eating some fried food and had a acute onset of right upper quadrant pain. Patient had had an episode like this before and believe that to be her gallbladder. Patient initially received a CAT scan that was consistent with acute cholecystitis and patient was admitted with IV antibiotics and IV hydration for her condition. Patient was resuscitated over Sunday and was anders ropriate for surgery this a.m. Patient had all risk benefits alternatives discussed with her in detail and consent was obtained. Patient received a block via anesthesia and was brought to the operating room and placed on the operating table in a supine fashion. Patient underwent general anesthesia and endotracheal intubation. A thorough timeout was done with the entire or staff present. Patient's abdomen was prepped and draped in a sterile fashion. Patient had local anesthesia into the supraumbilical area of her abdomen and a 2 cm incision was made with sharp dissection down below the f ascia the fascia was incised and the abdomen answered at this time Ruben trocar was inserted and the abdomen insufflated to 15 mmHg. Upon entering the abdomen with the 5 mm 30 degree scope a thorough exploratory laparoscopy was performed and no other pathology was noted other than a distended tense gallbladder. The patient had 3 5mm right upper quadrant ports placed under direct vision at this time. The gallbladder was retracted and the L-hook used to isolate the cystic duct and cystic artery removing the peritoneum from the gallbladder. With the critical view in place the clips were placed on both the cystic artery and cystic duct. A small H branch which was observed and bovied continue to bleed and a separate clip was placed on this. With both the cystic duct and cystic artery isolated with clips the Endo Kavita were used to transect both in the remainder of the gallbladder was removed from the liver bed with Bovie cautery. Patient had irrigation of the abdomen with approximately 10 cc of blood loss. The ports were all taken out under direct vision the gallbladder was placed in Endo Catch bag and brought out through the umbilical port. Patient had fascial stitches approximating the fascia at the umbilicus and all wounds were closed with Vicryl and Monocryl as well as Dermabond at the skin level. A thorough debriefing was done with the entire or staff present. The patient's was notified postoperatively of all operative findings and procedures.
[2018-08-19] MEDS: LORazepam 2 MG/ML VIAL 0.5 MG IVP ×2 (14:21→14:31)
[2018-08-19] MEDS: fentaNYL 100 MCG/2 ML VIAL IVP (14:50)
[2018-08-19] MEDS: HYDROmorphone 2 MG/ML VIAL IVP ×2 (15:54→19:49)
[2018-08-19] MEDS: Normal Saline Flush 10 ML SYR IVP ×2 (15:54→19:50)
--- NOTE | 2018-08-19 16:38 | NUR.NOTE ---
Nursing Note: Pt to [facility] floor from PACU at 1525. VSS, lungs clear, hypoactive bowel sounds. at bedside. Pt c/o extensive pain; dilaudid IV administered. LR@125/hr. Pt and family oriented to room. Call pulido within reach.
[2018-08-20 00:55] VITALS: BP 111/68; PULSE 50; RESP 16; TEMP 37.1; O2SAT 96
[2018-08-20] MEDS: Lactated Ringers 1,000 ML 125 ML IV (02:15)
[2018-08-20 04:36] VITALS: BP 114/74; PULSE 97; RESP 18; TEMP 37.5; O2SAT 94
[2018-08-20] MEDS: HYDROmorphone 2 MG/ML VIAL IVP ×3 (04:44→12:37)
[2018-08-20] MEDS: MetroNIDAZOLE 500 MG/100 ML BAG 100 MG IVPB (04:44)
[2018-08-20] MEDS: Normal Saline Flush 10 ML SYR IVP ×2 (04:44→09:36)
[2018-08-20 07:18] LABS: Abs Immature Grans 0.03 k/cumm (0.0-0.09); Absolute Basophil Count 0.02 k/cumm (0.0-0.2); Absolute Eosinophil Count 0.05 k/cumm (0.0-0.7); Absolute Lymphocyte Count 1.75 k/cumm (1.2-3.4); Absolute Monocyte Count 0.57 k/cumm (0.11-0.7); Absolute Neutrophil Count 7.59 k/cumm (1.2-6.7); Basophils % 0.2; Eosinophils % 0.5; HCT 37.9 % (36.0-46.0); HGB 12.6 g/dL (12.0-15.5); Immature Grans % 0.3; Lymphocytes % 17.5; Mean Corp. HGB Concentration 33.2 g/dL (32.0-36.0); Mean Corpuscular Volume 90.2 fL (80-95); Mean Platelet Volume 10.2 fL (8.0-11.0); Monocytes % 5.7; Neutrophils % 75.8; Platelet Count 250 x1000/uL (130-400); RBC Distribution Width 13.3 % (11.7-14.6); White Blood Cell Count 10.01 k/cumm (4.4-10.8)
--- NOTE | 2018-08-20 07:18 | W.PM.PROGNOT ---
Documented by User: DEVON Escamilla 08/20/18 07:28 Date of Service Date of service: 08/20/18 Time of Service: 07:19 Assessment and Plan (1) Acute cholecystitis: Current visit: Yes Status: Acute POD #1 s/p laparoscopic cholecystectomy. Pain currently well managed with pain medications. Tolerating clear liquids, will progress to normal diet for breakfast. Labs pending. If tolerating normal diet and pain continues to be well managed, will consider D/C home later this afternoon. (2) Lactic acid acidosis: Current visit: Yes Status: Resolved Resolved. (3) Leukocytosis (leucocytosis): Current visit: Yes Status: Acute Resolved. WBC normal this morning at 10.01. Qualifiers: Leukocytosis type: unspecified Qualified Code(s): D72.829 - Elevated white blood cell count, unspecified Subjective Interval history since last seen: Mrs. Lambert reports that she is feeling pretty good this morning, with moderate right sided abdominal pain. She has been ambulating within the room. She reports passing some gas. She is urinating without difficulty. No BM. Tolerated clear liquids. Denies nausea or vomiting. Exam Const General: cooperative, healthy appearing and comfortable Orientation: alert and oriented x3 Resp Effort & Inspection: normal respiratory effort, no audible wheezes and no cough Auscultation: clear to auscultation bilaterally Cardio Jugular venous pressure: no JVD Rate: regular rate Rhythm: regular rhythm Heart Sounds: S1 normal, S2 normal and no murmurs GI Inspection: normal to inspection, non-distended and incision (Skin a fix in place. No erythema, swelling or warmth noted on exam. ) Palpation: soft, no guarding and tender in the RLQ and in the RUQ; with no rebound tenderness Auscultation: normal bowel sounds Objective Objective Clinical Data: Vital Signs Temperature 37.5 C 08/20/18 04:36 Temperature Source Tympanic 08/20/18 04:36 Pulse 97 H 08/20/18 04:36 Pulse Rhythm Regular 08/20/18 00:55 Pulse 71 08/17/18 20:20 Respiratory Rate 18 08/20/18 04:36 Respiratory Effort Non-Labored 08/20/18 00:55 Respiratory Depth Normal 08/20/18 00:55 Respiratory Pattern Normal 08/20/18 00:55 Blood Pressure 114/74 08/20/18 04:36 Blood Pressure Mean 85 08/17/18 20:16 Pulse Oximetry 94 L 08/20/18 04:36 Respiratory End-tidal CO2 31 08/19/18 15:15 Oxygen Delivery Method Room Air 08/20/18 04:36 Oxygen Flow Rate 0 08/20/18 04:36 Pain Level 5 08/19/18 15:15 Intake & Output 08/19/18 08/19/18 08/20/18 11:59 23:59 11:59 Intake Total 1429.166 / 3476.667 2047.501 / 3476.667 Output Total 1550 / 2060 510 / 2060 900 / 900 Balance -120.834 / 7630.527 6653.501 / 1416.667 -900 / -900 Intake: IV 1429.166 / 3476.667 2047.501 / 3476.667 Oral 0 / 0 Output: Urine 1550 / 2050 500 / 2050 900 / 900 Estimated Blood Loss Other: Urine Color Dark Isabell Dark Isabell Brown Urine Appearance Clear Clear Clear Urine Odor Normal None Comment tea colored Emesis Description None Voiding Methods Toilet Toilet Laboratory Results WBC 12.35 k/cumm (4.4-10.8) H 08/18/18 07:48 RBC 3.98 m/cumm (4.00-5.20) L 08/18/18 07:48 Hgb 12.0 g/dL (12.0-15.5) D 08/18/18 07:48 Hct 35.5 % (36.0-46.0) L 08/18/18 07:48 MCV 89.2 fL (80-95) 08/18/18 07:48 MCH 30.2 pg (27.0-33.0) 08/18/18 07:48 MCHC 33.8 g/dL (32.0-36.0) 08/18/18 07:48 RDW 13.0 % (11.7-14.6) 08/18/18 07:48 Plt Count 252 x1000/uL (130-400) D 08/18/18 07:48 MPV 10.0 fL (8.0-11.0) 08/18/18 07:48 Immature Gran % 0.3 08/18/18 07:48 Neutrophils % 80.1 01/27/19 07:48 Lymphocytes % 14.0 08/18/18 07:48 Monocytes % 4.9 08/18/18 07:48 Eosinophils % 0.4 08/18/18 07:48 Basophils % 0.3 08/18/18 07:48 Absolute Neutrophils 9.89 k/cumm (1.2-6.7) H 08/18/18 07:48 Absolute Lymphocytes 1.73 k/cumm (1.2-3.4) 08/18/18 07:48 Absolute Monocytes 0.61 k/cumm (0.11-0.7) 08/18/18 07:48 Absolute Eosinophils 0.05 k/cumm (0.0-0.7) 08/18/18 07:48 Absolute Basophils 0.04 k/cumm (0.0-0.2) 08/18/18 07:48 Sodium 141 mmol/L (136-145) 08/18/18 07:48 Potassium 3.8 mmol/L (3.5-5.1) D 08/18/18 07:48 Chloride 105 mmol/L (98-107) 08/18/18 07:48 Carbon Dioxide 27.1 mmol/L (21.0-32.0) 08/18/18 07:48 Anion Gap 8.9 mmol/L (3-11) 08/18/18 07:48 BUN 9 mg/dL (7-18) D 08/18/18 07:48 Creatinine 0.74 mg/dL (0.55-1.02) 08/18/18 07:48 Estimated GFR/1.73 m2 >= 60.00 (mL/min/1.73m2) 08/18/18 07:48 Glucose 104 mg/dL (70-100) H 08/18/18 07:48 Lactate 0.9 mmol/l (0.6-1.4) 08/18/18 07:48 Calcium 8.3 mg/dL (8.5-10.1) L 08/18/18 07:48 Total Bilirubin 0.4 mg/dL (0.2-1.0) 08/18/18 07:48 AST 9 U/L (15-37) L 08/18/18 07:48 ALT 13 U/L (12-78) 08/18/18 07:48 Alkaline Phosphatase 67 U/L (46-116) 08/18/18 07:48 Total Protein 6.3 g/dL (6.4-8.2) L 08/18/18 07:48 Albumin 3.1 g/dL (3.4-5.0) L 08/18/18 07:48 Lipase 162 U/L (73-393) 08/18/18 07:48 Patient ABO/Rh B Negative 08/17/18 19:33 Antibody Screen Negative 08/17/18 19:33 Documented by User: Praneeth Fairbanks III, DO 08/20/18 10:13
[2018-08-20 07:25] VITALS: BP 114/70; PULSE 51; RESP 18; TEMP 37.2; O2SAT 96
[2018-08-20] MEDS: CIPROFLOXACIN 400 MG/200 ML BAG 200 MG IVPB (09:37)
--- NOTE | 2018-08-20 18:22 | PDOC.CMDIS ---
LACE Index Scoring Tool - Questions: Length of Stay (in days): 3 Acuity (Admit via E.D.?): Yes E.D. Visits: 2 - Answers: Total Score: 8 Risk of Readmission: Low Risk Care Management Discharge Reason for Hospitalization: Abdominal pain, RUQ, acute cholecystitis Discharge Plan: Jen will discharge home when medically ready per provider. No additional services needed at this time. She will transport via private vehicle with her , Dc. Patient/Family Education Needs: Review of discharge instructions; discuss Ask Me Three.
== END 2018-08-20 13:15 | disposition home or self-care (01) | DRG 418 ==
LOC: ER 21:34 → MS 21:40
PROVIDERS: Surgery; Admitting Provider Surgery; Emergency Provider Student in an Organized Health Care Education/Training Program; PCP Internal Medicine; Visit Provider Surgery
PROC: 0FT44ZZ Resection of Gallbladder, Percutaneous Endoscopic Approach (ICD-10-PCS; CPT 47562; principal; 2018-08-19 12:00)
DX: K80.12 Calculus of gallbladder with acute and chronic cholecystitis without obstruction (principal); E87.2 Acidosis; D72.829 Elevated white blood cell count, unspecified; E87.6 Hypokalemia
CPT/HCPCS: 47562; 36415; 76942; 80053; 83690; 86850; 86900; 86901; 96361; 96374; 96375; 96376; 99222; 99232; 99285; NC; 74177; 76700; 83605; 85025; 88304; 99284; J0131; J0360; J0744; J1100; J1885; J2060; J2250; J2405; J3490

== ENCOUNTER 2018-11-04 15:23 | Outpatient (CLI) | payer BC, SELFPAY ==
[2018-11-04 15:49] LABS: Abs Immature Grans 0.01 k/cumm (0.0-0.09); Absolute Basophil Count 0.08 k/cumm (0.0-0.2); Absolute Eosinophil Count 0.16 k/cumm (0.0-0.7); Absolute Lymphocyte Count 2.14 k/cumm (1.2-3.4); Absolute Monocyte Count 0.46 k/cumm (0.11-0.7); Absolute Neutrophil Count 5.02 k/cumm (1.2-6.7); HCT 41.6 % (36.0-46.0); HGB 14.3 g/dL (12.0-15.5); Immature Grans % 0.1; Lymphocytes % 27.2; Mean Corp. HGB Concentration 34.4 g/dL (32.0-36.0); Mean Corpuscular Hemoglobin 30.3 pg (27.0-33.0); Mean Corpuscular Volume 88.1 fL (80-95); Mean Platelet Volume 10.1 fL (8.0-11.0); Monocytes % 5.8; Neutrophils % 63.9; Platelet Count 248 x1000/uL (130-400); RBC 4.72 m/cumm (4.00-5.20); White Blood Cell Count 7.87 k/cumm (4.4-10.8)
[2018-11-04 16:53] LABS: ALT 22 U/L (12-78); AST 16 U/L (15-37); Albumin 4.6 g/dL (3.4-5.0); Alkaline Phosphatase 83 U/L (46-116); BUN 9 mg/dL (7-18); Bilirubin, Total 0.6 mg/dL (0.2-1.0); CREATININE 0.82 mg/dL (0.55-1.02); Calcium 9.1 mg/dL (8.5-10.1); Chloride 102 mmol/L (98-107); Glucose 98 mg/dL (70-100); Magnesium 2.2 mg/dL (1.8-2.4); Potassium 4.3 mmol/L (3.5-5.1); Sodium 139 mmol/L (136-145); TSH 2.62 uIU/mL (0.358-3.74); Total Protein 7.8 g/dL (6.4-8.2)
[2018-11-04 18:12] LABS: Cholesterol 147 mg/dL (50-200); HDL Cholesterol 53 mg/dL (40-60); LDL CHOLESTEROL 79 mg/dL (<100); Triglyceride 60 mg/dL (30-150); Vitamin B12 842 pg/mL (193-986)
== END 2018-11-04 15:43 ==
PROVIDERS: PCP Internal Medicine
DX: Z00.00 Encounter for general adult medical examination without abnormal findings (principal); Z13.220 Encounter for screening for lipoid disorders; Z13.29 Encounter for screening for other suspected endocrine disorder; Z13.0 Encounter for screening for diseases of the blood and blood-forming organs and certain disorders involving the immune mechanism
CPT/HCPCS: 36415; 80053; 80061; 83721; 82607; 83735; 84443; 85025

== ENCOUNTER 2019-09-16 09:14 | Outpatient (CLI) | payer BC, SELFPAY ==
[2019-09-16 10:05] LABS: Abs Immature Grans 0.02 k/cumm (0.0-0.09); Absolute Basophil Count 0.05 k/cumm (0.0-0.2); Absolute Eosinophil Count 0.18 k/cumm (0.0-0.7); Absolute Lymphocyte Count 1.46 k/cumm (1.2-3.4); Absolute Monocyte Count 0.36 k/cumm (0.11-0.7); Absolute Neutrophil Count 3.73 k/cumm (1.2-6.7); Basophils % 0.9; Eosinophils % 3.1; HCT 42.1 % (36.0-46.0); HGB 14.2 g/dL (12.0-15.5); Immature Grans % 0.3 %; Lymphocytes % 25.2; Mean Corp. HGB Concentration 33.7 g/dL (32.0-36.0); Mean Corpuscular Hemoglobin 29.6 pg (27.0-33.0); Mean Corpuscular Volume 87.7 fL (80-95); Mean Platelet Volume 9.8 fL (8.0-11.0); Monocytes % 6.2; Neutrophils % 64.3; Platelet Count 263 x1000/uL (130-400); RBC Distribution Width 12.5 % (11.7-14.6)
[2019-09-16 11:35] LABS: ALT 20 U/L (14-59); AST 14 U/L (15-37); Albumin 4.3 g/dL (3.4-5.0); Alkaline Phosphatase 74 U/L (46-116); Anion Gap 10.9 mmol/L (3-11); BUN 11 mg/dL (7-18); Bilirubin, Total 0.7 mg/dL (0.2-1.0); CO2 26.1 mmol/L (21.0-32.0); CREATININE 0.75 mg/dL (0.55-1.02); Calcium 8.9 mg/dL (8.5-10.1); Calculated LDL 132 mg/dL (<100); Chloride 104 mmol/L (98-107); Cholesterol 199 mg/dL (<200); Glucose 90 mg/dL (74-106); HDL Cholesterol 49 mg/dL (40-60); Magnesium 2.3 mg/dL (1.8-2.4); Potassium 4.4 mmol/L (3.5-5.1); Sodium 141 mmol/L (136-145); TSH 2.47 uIU/mL (0.36-3.74); Total Protein 7.3 g/dL (6.4-8.2); Triglyceride 92 mg/dL (<150); Vitamin B12 712 pg/mL (193-986)
== END 2019-09-16 09:34 ==
PROVIDERS: PCP Internal Medicine; Visit Provider Internal Medicine
DX: Z00.00 Encounter for general adult medical examination without abnormal findings (principal)
CPT/HCPCS: 36415; 80053; 80061; 82607; 83735; 84443; 85025

== ENCOUNTER 2021-05-24 10:52 | Emergency (ER) | payer BC, SELFPAY ==
[2021-05-24 11:04] VITALS: BP 171/87; PULSE 93; RESP 16; O2SAT 99
--- NOTE | 2021-05-24 11:10 | ED.GENADUL_ITS ---
Discharge Plan Disposition Patient Disposition: HOME Condition: Stable Discharge Details Clinical Impression: Viral syndrome, Diarrhea Primary Care Provider: Court Mccormick ED Provider: Kavin Barrios Home Meds and New Rx's Prescriptions: New hydroxyzine HCl 25 mg tablet 25 mg PO TID PRN (Reason: itching) Qty: 20 RF: 0 Continued montelukast [Singulair] 10 MG tablet 10 mg PO DAILY RF: 0 Zyrtec 10 MG capsule 10 mg PO DAILY RF: 0 albuterol sulfate 8.5 GM HFA aerosol inhaler 2 puff Inhalation PRN RF: 0 famotidine 40 mg tablet 40 mg PO DAILY RF: 0 Discharge Instructions Instructions: Acute Diarrhea (ED), Viral Syndrome (ED) Additional Instructions: Work-up in the ER today does not reveal any obvious emergent process. Plenty of fluids to avoid dehydration. Bduy-trc-uwaryfy medications as directed for symptomatic control. I would recommend adding on Imodium for your diarrhea. Please watch for new or worsening symptoms and return to the ER for any concerns. Lastly, I do recommend reaching out your primary care provider tomorrow to discuss your ongoing symptoms and need for outpatient reevaluation. Discharge Data Discharge Date/Time-TO BE ENTERED AT DEPARTURE: 05/24/21 15:10 Medical Decision Making 45-year-old female presents with multiple symptoms across multiple review symptoms, significant other does have similar symptoms. Patient was also exposed to Covid on . Clinically she appears well, nontoxic. She presents minimally hypertensive, pulse in the 90s, respirations 16, O2 sat 99% on room air. She is afebrile. Plan is to obtain IV access, give IV fluid obtain routine screening laboratory values including a flu swab, Covid swab, chest x-ray, urinalysis. Patient is comfortable with this plan and has no additional questions or concerns. Laboratory values reveal no evidence of leukocytosis or anemia. Platelet count is appropriate to 60. Sodium 143 potassium 4.7 creatinine 0.7 with a GFR greater than 60. Glucose 88 calcium 8.7 LFTs unremarkable lipase 207. Patient unfortunately was unable to provide a stool sample. Covid negative, flu negative. Chest x-ray unremarkable. Upon reevaluation we discussed her negative work-up thus far. Patient appears well, nontoxic, blood pressure is trending downward nicely. We discussed the importance of treating her symptoms with lalu-tdk-wnkxdli medications such as Tylenol, Motrin, Imodium, plenty of fluids to avoid dehydration. Although she does not have a rash right now she still feels slightly itchy, requesting me dication for this. Will provide a prescription for hydroxyzine. Standard discharge and return precautions provided. Patient has no additional questions or concerns and is comfortable with this plan. This documentation was generated using [employer] dictation system, please disregard any oddities of phrase or misspellings. Medical Records Medical records reviewed: Yes I reviewed the patient's medical records. Imaging Data Radiologic Study: Attestation: I personally reviewed and interpreted this imaging study as follows: Imaging: X-Ray Radiologist's impression: Exam(s) XR PORTABLE CHEST AP EXAM: XR PORTABLE CHEST AP CLINICAL HISTORY: cough. TECHNIQUE: 2D digital imaging was performed. COMPARISON: CR CHEST 2 VIEWS PA,LAT from 06/10/2016 FINDINGS: LUNGS: Clear. No pleural abnormality seen. HEART: Normal. MEDIASTINUM: Normal. OTHER FINDINGS: None. IMPRESSION: No acute pulmonary findings. Lab Data Lab results reviewed: Yes I reviewed the patient's lab results. Labs: 05/24/21 13:29 Nasopharynx Influenza Types A,B Antigen - Final 05/24/21 13:27 Tonsil - Not Specified Group A Streptococcus Culture - Pending Laboratory Tests Range/Units 05/24/21 05/24/21 05/24/21 12:30 12:30 13:29 WBC (4.4-10.8) 10^3/uL 6.93 RBC (3.93-5.22) 10^6/uL 4.61 Hgb (11.2-15.7) g/dL 13.9 Hct (36.0-46.0) % 41.8 MCV (80-95) fL 90.7 MCH (27.0-33.0) pg 30.2 MCHC (32.0-36.0) % 33.3 RDW (11.7-14.6) % 11.9 Plt Count (130-400) 10^3/uL 260 MPV (8.0-11.0) fL 9.9 Immature Gran % 0.4 Neutrophils % 60.5 Lymphocytes % 26.0 Monocytes % 6.2 Eosinophils % 5.3 Basophils % 1.6 Nucleated RBC % % 0 Absolute Neutrophils (1.2-6.7) 10^3/uL 4.19 Absolute Lymphocytes (1.2-3.4) 10^3/uL 1.80 Absolute Monocytes (0.1-0.8) 10^3/uL 0.43 Absolute Eosinophils (0.0-0.7) 10^3/uL 0.37 Absolute Basophils (0.0-0.2) 10^3/uL 0.11 Sodium (136-145) mmol/L 143 Potassium (3.5-5.1) mmol/L 4.7 Chloride (98-107) mmol/L 108 H Carbon Dioxide (21.0-32.0) mmol/L 28.6 Anion Gap (3-11) mmol/L 6.4 BUN (7-18) mg/dL 10 Creatinine (0.55-1.02) mg/dL 0.7 Estimated GFR/1.73 m2 (mL/min/1.73m2) >= 60.00 Glucose (74-106) mg/dL 88 Calcium (8.5-10.1) mg/dL 8.7 Total Bilirubin (0.2-1.0) mg/dL 0.5 AST (15-37) U/L 30 ALT (14-59) U/L 23 Alkaline Phosphatase (46-116) U/L 70 Total Protein (6.4-8.2) g/dL 7.7 Albumin (3.4-5.0) g/dL 4.0 Lipase (73-393) U/L 207 COVID-19 Source Nasal/Nares HPI General Mode of arrival: ambulatory . Date/Time Provider Initiated Documentation: 05/24/21 11:01 . Limitations to Documentation: no limitations . Information obtained by: patient . 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 Patient reports a Covid exposure last , she is fully vaccinated. She would like to be tested for Covid as well. She reports that she occasionally feels wheezy but this is fairly typical with her asthma. Denies any acute visual changes, neck pain, chest pain, shortness of breath, cough, abdominal pain, dysuria, pain or swelling in her legs. Patient did take adgf-qra-xmsadwm Benadryl the past few days for her rash, rash has resolved but she still feels slightly itchy. She also reports taking omqr-uys-epycsyy medication for fever control. She has not taken any medications for her diarrhea. Patient states that she is able to tolerate p.o. intake and has been trying to increase her fluid intake to avoid dehydration. Related Data Home Medications Medication Instructions Recorded Confirmed Zyrtec 10 mg PO DAILY 03/06/14 05/24/21 albuterol sulfate 2 puff INHALATION PRN 03/06/14 05/24/21 montelukast [Singulair] 10 mg PO DAILY 03/06/14 05/24/21 famotidine 40 mg PO DAILY 05/24/21 05/24/21 hydroxyzine HCl 25 mg PO TID PRN #20 tab 05/24/21 Previous Rx's Medication Instructions Recorded hydroxyzine HCl 25 mg PO TID PRN #20 tab 05/24/21 Allergies Allergy/AdvReac Type Severity Reaction Status Date / Time Penicillins Allergy Severe Anaphylaxsi Verified 05/24/21 11:10 s General Stated Complaint: Nausea/Vomit/Diar MINDA: 3 Review of Systems Constitutional Constitutional: Reports fatigue, Reports fever(s) and Reports headache(s) Eyes Eyes: Denies change in vision ENT Ears, Nose, Mouth, and Throat: Reports headache(s) and Denies neck pain Cardiovascular Cardiovascular: Denies chest pain and Denies dyspnea Respiratory Respiratory: Denies cough, Denies dyspnea and Reports wheezing Gastrointestinal Gastrointestinal: Denies abdominal pain, Denies melena, Denies hematochezia, Reports diarrhea, Reports nausea and Denies vomiting Genitourinary Genitourinary: Denies dysuria Musculoskeletal Musculoskeletal: Denies back pain, Reports myalgias and Denies neck pain Integumentary/Breasts Skin/Breast: Reports rash (Resolved) Neurologic Neurologic: Reports headache(s) and Reports weakness (Generalized) Endocrine Endocrine: Reports fatigue Allergic/Immunologic Allergic/Immunologic: Reports wheezing [facility] Medical History Acute abdominal pain in right upper quadrant Acute cholecystitis Asthma Leukocytosis (leucocytosis) Surgical History Hx laparoscopic cholecystectomy (08/19/18) Dr Praneeth Fairbanks, [facility] Ligation of fallopian tube Social History Smoking/Tobacco Use Status: Never Smoking risk assessment performed?: Yes Alcohol Intake: current Alcohol Intake frequency: a few times a month Drug use: Never Substance use type: does not use Do you feel safe at home: Yes Do you feel safe in your relationship?: Yes Exam Const General: cooperative, healthy appearing, comfortable and no acute distress Orientation: alert, awake and oriented x3 HENMT Head: normal to inspection, normocephalic and atraumatic Face and sinus: normal facial exam Mouth: moist mucous membranes Throat: posterior oropharynx normal Eyes General: appearance normal, both eyes and all related structures Conjunctivae: conjunctivae normal Neck Neck: normal visual inspection, full ROM, no lymphadenopathy, no meningeal signs, trachea midline, supple and nontender Resp Effort & Inspection: normal respiratory effort and able to speak in complete sentences Auscultation: clear to auscultation bilaterally Cardio Rate: regular rate Rhythm: regular rhythm GI Palpation: soft, not firm, no guarding, no pulsatile masses and nontender Auscultation: normal bowel sounds Back/Spine/Pelvis Back: No back tenderness Skin General skin exam: no rashes or lesions noted Neuro General: patient alert, patient awake, patient oriented x3, moves all extremities and no focal motor deficits Cognition: normal cognition Speech: speech normal Gait: normal gait Motor: muscle tone normal throughout Sensory Exam: no sensory deficits noted Extrem General: normal to inspection, full ROM, capillary refill normal and no pedal edema Psych Appearance: grossly normal Mental Status: mental status grossly normal Course Vital Signs Vital signs: Vital Signs Pulse 93 H 05/24/21 11:04 Respiratory Rate 16 05/24/21 11:04 Blood Pressure 171/87 H 05/24/21 11:04 Pulse Oximetry 99 05/24/21 11:04 Pulse 93 H 05/24/21 11:04 Respiratory Rate 16 05/24/21 11:04 Respiratory Effort Non-Labored 05/24/21 11:09 Blood Pressure 171/87 H 05/24/21 11:04 Blood Pressure Position Sitting 05/24/21 11:04 Pulse Oximetry 99 05/24/21 11:04 Oxygen Delivery Method Room Air 05/24/21 11:04 Oxygen Flow Rate 0 05/24/21 11:04 Pain Level 0 05/24/21 11:04 PAWSS Have you Been Recently Intoxicated or Drunk Within the Last 30 days?: No Have you Ever Experienced Previous Episodes of Alcohol Withdrawal?: No Have you ever Experienced Withdrawal Seizures?: No Have you ever Experienced Delirium Tremens(DT)s?: No Have you ever undergone Alcohol Rehabilitation Treatment (i.e, inpt ot outpatient treatment programs)?: No Have you ever Experienced Blackouts?: No Have you ever Combined Alcohol with other Downers within the last 90 days?: No Have you ever Combined Alcohol with any other Substance of Abuse during the last 90 days?: No Positive Blood Alcohol level on Presentation? [PCS.BAL]: No Evidence of Increased Autonomic Activity (i.e. HR>120, tremor, sweating, agitation, nausea)?: No Result: 0
[2021-05-24 12:45] LABS: Abs Immature Grans 0.03 10^3/uL (0.0-0.06); Absolute Basophil Count 0.11 10^3/uL (0.0-0.2); Absolute Eosinophil Count 0.37 10^3/uL (0.0-0.7); Absolute Monocyte Count 0.43 10^3/uL (0.1-0.8); Absolute Neutrophil Count 4.19 10^3/uL (1.2-6.7); Basophils % 1.6; Eosinophils % 5.3; HCT 41.8 % (36.0-46.0); HGB 13.9 g/dL (11.2-15.7); Immature Grans % 0.4; MCH 30.2 pg (27.0-33.0); MCHC 33.3 % (32.0-36.0); MCV 90.7 fL (80-95); MPV 9.9 fL (8.0-11.0); Monocytes % 6.2; Neutrophils % 60.5; Nucleated RBC 0 %; Platelet Count 260 10^3/uL (130-400); RBC 4.61 10^6/uL (3.93-5.22); RDW 11.9 % (11.7-14.6); RDW-SD 39.7 fL; WBC 6.93 10^3/uL (4.4-10.8)
[2021-05-24] MEDS: Normal Saline 1,000 ML 1000 ML IV (12:45)
--- NOTE | 2021-05-24 12:49 | DI.RAD_ITS ---
Exam(s) XR PORTABLE CHEST AP EXAM: XR PORTABLE CHEST AP CLINICAL HISTORY: cough. TECHNIQUE: 2D digital imaging was performed. COMPARISON: CR CHEST 2 VIEWS PA,LAT from 06/10/2016 FINDINGS: LUNGS: Clear. No pleural abnormality seen. HEART: Normal. MEDIASTINUM: Normal. OTHER FINDINGS: None. IMPRESSION: No acute pulmonary findings. DATA REPOSITORY: RADIATION DOSE DELIVERED: Total DLP
[2021-05-24 13:05] LABS: ALT 23 U/L (14-59); AST 30 U/L (15-37); Alkaline Phosphatase 70 U/L (46-116); Anion Gap 6.4 mmol/L (3-11); BUN 10 mg/dL (7-18); Bilirubin, Total 0.5 mg/dL (0.2-1.0); CO2 28.6 mmol/L (21.0-32.0); CREATININE 0.7 mg/dL (0.55-1.02); Calcium 8.7 mg/dL (8.5-10.1); Chloride 108 mmol/L (98-107); Glucose 88 mg/dL (74-106); Lipase 207 U/L (73-393); Potassium 4.7 mmol/L (3.5-5.1); Sodium 143 mmol/L (136-145); Total Protein 7.7 g/dL (6.4-8.2)
[2021-05-24 13:31] LABS: Source Nasal/Nares
[2021-05-24 14:47] LABS: COVID-19 PCR Negative (Negative)
[2021-05-24 14:51] VITALS: BP 129/80; PULSE 90; TEMP 36.6; O2SAT 97
[2021-05-24 15:01] VITALS: BP 129/80; PULSE 90; RESP 16; TEMP 36.6; O2SAT 97
--- NOTE | 2021-05-24 18:56 | NUR.NOTE ---
referral to cm for closer pcp
== END 2021-05-24 15:10 | disposition home or self-care (01) ==
PROVIDERS: Emergency Provider Physician Assistant; PCP Internal Medicine
DX: B34.9 Viral infection, unspecified (principal); R19.7 Diarrhea, unspecified; R05.1 Acute cough; Z20.822 Contact with and (suspected) exposure to COVID-19
CPT/HCPCS: 36415; 80053; 83690; 87449; 87493; 87505; 87635; 87880; 96360; 99284; 71045; 85025; 87081

== ENCOUNTER 2021-11-09 17:33 | Outpatient (REF) | payer BC, SELFPAY ==
--- NOTE | 2021-11-09 15:30 | PAPFT_PTH ---
PATIENT: Jen Holt LOC: [facility]#:[id number] AGE/SX: 46/F ROOM: RE11/09/[address]: Mary Florentino : 1975 BED: DIS: 11/09/2021 SPEC #: [id number] RECD: 11/10/21 12:42 STATUS: GARTH QUIROZ #: [id number] KENNY: 11/09/21 15:[address]: Mary Florentino DEPT: [facility] Cytology RECD BY: Edyta Oseguera ENTERED: 11/10/21 12:42 SP TYPE: PAPFT OTHR DR: Court Mccormick Tissues: 1 - CX/ENDOCX FOR PAP SMEARS Procedures: PAP THIN PREP/UVM Screening HPV DNA PROBE Comments: [id number] (CHLAMYDIA/GC)
[2021-11-11 14:16] LABS: Chlamydia Result Negative (Negative); GC Result Negative (Negative)
== END 2021-11-09 17:34 | disposition home or self-care (01) ==
LOC: NCHCN 17:33
PROVIDERS: PCP Internal Medicine; Visit Provider Nurse Practitioner Family
DX: Z11.3 Encounter for screening for infections with a predominantly sexual mode of transmission (principal); Z12.4 Encounter for screening for malignant neoplasm of cervix; Z11.51 Encounter for screening for human papillomavirus (HPV); Z00.00 Encounter for general adult medical examination without abnormal findings; Z01.419 Encounter for gynecological examination (general) (routine) without abnormal findings
CPT/HCPCS: 87491; 87591; 88142; 87624

== ENCOUNTER 2022-12-13 11:16 | Outpatient (REF) | payer BC, SELFPAY ==
[2022-12-13 17:04] LABS: ALT 31 U/L (14-59); AST 17 U/L (15-37); Albumin 4.3 g/dL (3.4-5.0); Alkaline Phosphatase 111 U/L (46-116); Anion Gap 9.3 mmol/L (3-11); BUN 13 mg/dL (7-18); Bilirubin, Total 0.4 mg/dL (0.2-1.0); CO2 26.7 mmol/L (21.0-32.0); CREATININE 0.9 mg/dL (0.55-1.02); Calcium 9.2 mg/dL (8.5-10.1); Calculated LDL 106 mg/dL (<100); Chloride 105 mmol/L (98-107); Cholesterol 181 mg/dL (<200); Estimated GFR 79.35 (mL/min/1.73m2); Glucose 92 mg/dL (74-106); HDL Cholesterol 53 mg/dL (40-60); Potassium 4.4 mmol/L (3.5-5.1); Sodium 141 mmol/L (136-145); TSH (W/Ref FT4) 4.22 uIU/mL (0.36-3.74); Total Protein 7.6 g/dL (6.4-8.2); Triglyceride 112 mg/dL (<150)
[2022-12-13 17:24] LABS: FREE T4 0.84 ng/dL (0.76-1.46)
== END 2022-12-13 11:17 | disposition home or self-care (01) ==
LOC: NCHCN 11:16
PROVIDERS: PCP Internal Medicine; Visit Provider Family Medicine
DX: Z00.00 Encounter for general adult medical examination without abnormal findings (principal); R53.81 Other malaise; R53.83 Other fatigue; E66.8 Other obesity; Z13.1 Encounter for screening for diabetes mellitus
CPT/HCPCS: 80053; 80061; 83036; 84439; 84443

== ENCOUNTER 2023-01-02 01:28 | Outpatient (CLI) | payer BC, SELFPAY ==
--- NOTE | 2023-01-02 | DI.MAMMO_ITS ---
Exam(s) MAMMO SCREENING EXAM: MAMMO SCREENING CLINICAL HISTORY: SCREENING,Z12.39. TECHNIQUE: Bilateral full field digital CC and MLO mammographic images were obtained with 3D tomosyn thesis and utilizing computer aided detection (CAD). COMPARISON: Prior outside mammograms were reviewed. FINDINGS: There has been no significant change in the appearance and distribution of the fibroglandular tissue. There are no CAD designations. There are no new spiculated masses nor malignant appearing microcalcification groups. Small benign-appearing nodule in the left breast appears unchanged and has appearance of a benign int ramammary lymph node. There is no significant architectural distortion nor skin thickening-retraction. IMPRESSION: Stable benign-appearing findings. No radiographic evidence of malignancy. BI-RADS Category 2 - Benign Findings Breast Density - Category B - Scattered areas of fibroglandular density Breast density Category C or D implies that the patient has dense breast tissue. Dense breast tissue can make it harder to find cancer on a mammogram. Dense breast tissue is also associated with an incr eased risk of breast cancer. This information about the result of the mammogram report was provided to the patient to raise their awareness. Use this report when you speak with the patient about their risks for breast cancer, which includes their family history. At that time, you may recommend additional screening tests (Ultrasoun d or MRI) as these tests may add significant information. A negative radiographic report should not delay biopsy if a dominant or clinically suspicious mass is present. Up to ten percent of cancers are not identified on mammography. A negative report may reinforce clinical impression. Adenosis and dense breasts may obscure an underlying neoplasm. False positive reports average 6 to 10%. Patient will receive a letter notifying them of these results.
== END 2023-01-02 01:48 ==
PROVIDERS: PCP Internal Medicine; Visit Provider Family Medicine
DX: Z12.31 Encounter for screening mammogram for malignant neoplasm of breast (principal)
CPT/HCPCS: 77063; 77067

== ENCOUNTER 2023-01-25 15:48 | Outpatient (REF) | payer BC, SELFPAY ==
[2023-01-25 21:14] LABS: TSH (W/Ref FT4) 5.06 uIU/mL (0.36-3.74)
[2023-01-25 21:31] LABS: FREE T4 0.77 ng/dL (0.76-1.46)
== END 2023-01-25 15:49 | disposition home or self-care (01) ==
LOC: NCHCN 15:48
PROVIDERS: PCP Nurse Practitioner Family; Visit Provider Family Medicine
DX: R53.81 Other malaise (principal); E66.9 Obesity, unspecified
CPT/HCPCS: 84439; 84443

== ENCOUNTER 2023-01-31 17:47 | Outpatient (REF) | payer BC, SELFPAY ==
[2023-01-31 21:49] LABS: TSH (W/Ref FT4) 3.39 uIU/mL (0.36-3.74)
[2023-02-02 10:24] LABS: Lyme Ab w Rflx to Lyme Confirm Negative (Negative)
== END 2023-01-31 17:48 | disposition home or self-care (01) ==
LOC: NCHCN 17:47
PROVIDERS: PCP Nurse Practitioner Family; Visit Provider Family Medicine
DX: M25.542 Pain in joints of left hand (principal)
CPT/HCPCS: 84443; 86618

== ENCOUNTER 2023-02-23 16:13 | Outpatient (REF) | payer BC, SELFPAY ==
[2023-02-23 22:30] LABS: TSH (W/Ref FT4) 2.17 uIU/mL (0.36-3.74)
== END 2023-02-23 16:14 | disposition home or self-care (01) ==
LOC: NCHCN 16:13
PROVIDERS: PCP Nurse Practitioner Family; Visit Provider Nurse Practitioner Family
DX: Z00.00 Encounter for general adult medical examination without abnormal findings (principal); R53.83 Other fatigue; R53.81 Other malaise
CPT/HCPCS: 84443

== ENCOUNTER 2024-01-10 16:46 | Outpatient (REF) | payer BC, SELFPAY ==
[2024-01-10 14:39] LABS: TSH (W/Ref FT4) 1.85 uIU/mL (0.36-3.74)
[2024-01-10 15:27] LABS: Hemoglobin A1C 5.3 % (<5.7)
== END 2024-01-10 16:47 | disposition home or self-care (01) ==
LOC: NCHCN 16:46
PROVIDERS: PCP Family Medicine; Visit Provider Family Medicine
DX: E03.9 Hypothyroidism, unspecified (principal); Z13.1 Encounter for screening for diabetes mellitus
CPT/HCPCS: 83036; 84443

== ENCOUNTER 2024-04-03 18:11 | Outpatient (REF) | payer BC, SELFPAY ==
[2024-04-03 17:11] LABS: Bilirubin Negative (Negative); Blood Trace-intact (Negative); Clarity Clear (Clear); Glucose Negative (Negative); Ketones Negative (Negative); Leukocyte Esterase Small (Negative); Nitrite Negative (Negative); Specific Gravity 1.025 (1.005-1.025); Urobilinogen 0.2 mg/dL (Up to 0.2)
[2024-04-03 17:13] LABS: Bacteria Few HPF (Negative); C & S Indicated? Yes; Casts Negative LPF (Negative); Crystals Negative HPF (Negative); Epithelial Cells Rare HPF (Negative); Mucus Negative (Negative); WBC >50 HPF (0-5)
--- OUTSIDE RECORDS SUMMARY | 2024-04-03 18:13 | XMS_ITS | Encounter Summary ---
Author Organization [facility] Address [address] [place] [address] Care Team Providers Care Claims Service Representative Name Role Phone [place] Primary Care Provider [phone] Encounter Details Date Type Department Care Team (Late st Contact Info) Description 08/19/2018 Results Only [facility] [phone] Praneeth Fairbanks, DO [address] [place] [address] Social History Tobacco Use Types Packs/Day Years Used Date Smoking Tobacco: Never Assessed Sex and Gender Information Value Date Recorded Sex Assigned at Not on file Gender Identity Not on file Sexual Orientation Not on file documented as of this encounter Plan of Treatment Not on file documented as of this encounter Procedures Procedure Name Priority Date/Time Associated Diagnosis Comments SURGICAL PATHOLOGY Routine 08/19/2018 9:55 EST documented in this encounter Results * SURGICAL PATHOLOGY (08/19/2018 9:55 EST) Pathology Report: SURGICAL PATHOLOGY REPORT Reports generated via electronic interface contain original data; however they are lacking the format of the original report. Caution should be taken when reading/interpret ing unformatted reports. Name: ? CESARIO LAMBERT ? Accession #: ? [id number] ? : ? 1975 (Age: 42) ??F ? Collect Date: ? 08/19/2018 ? Location: ? [facility] ? Receive Date: ? 08/20/2018 ? Provider: PRANEETH FAIRBANKS DO Copy to: ELIEZER DUFFY MD ? Final Pathologic Diagnosis: GALLBLADDER, CHOLECYSTECTOMY: - ??Mild chronic cholecystitis. - ??Cholelithiasis. Document reviewed and electronically signed by: GERALDINE SPENCER MD Report ??Date: 08/22/2018 13:33 By the signature above, the attending physician certifies that he/she has personally conducted a gross and/or microscopic examination of the described specimens and rendered or confirmed the above diagnosis. Specimen(s) Received: Gallbladder Clinical History: Not listed Gross Description: ? Received in formalin labelled with proper patient identification (initials T, C) and gallbladder is an intact gallbladder (8.5 x 3.1 x 2.0 cm) with a segment of cystic duct (1.3 cm in length x 0.4 cm in diameter). ? The serosa is smooth and green-purple. The mucosa is velvety green and the wall is 0.2 cm in thickness. The cystic duct lumen is partially obstructed by a yellow bosselated cholelith (0.3 cm in greatest dimension). The cystic duct margin is inked blue. An aggregate of yellow bosselated choleliths (1.0 x 0.5 x 0.2 cm) is present. ? Two hvac sales representative sections and the inked en face cystic duct margin are submitted in 1. DEVON Echevarria (ASCP) 08/20/2018 10:31 AM End of Report [facility] 08/19/2018 9:55 EST 08/20/2018 9:55 EST Praneeth Fairbanks DO PATHOLOGY ORDERABL ES [facility] [address] [place] [address] documented in this encounter Visit Diagnoses Not on filedocumented in this encounter Care Teams Claims Service Representative Relationship Specialty Start Date End Date Casa Holden DO [address] [place] [phone] PCP - General 12/27/11 08/20/18 documented as of this encounter
--- OUTSIDE RECORDS SUMMARY | 2024-04-03 18:13 | XMS_ITS | Encounter Summary ---
Author Organization [facility] Address [address] [place] [address] Care Team Providers Care Reproducer Name Role Phone Unavailable Primary Care Provider Unavailabl e Encounter Details Date Type Department Care Team (Late st Contact Info) Description 12/09/2010 Results Only [facility] - [facility] [address] [place], [place] [id number] Guzman Jacobson MD [address] [place] [address] Social History Tobacco Use Types Packs/Day Years Used Date Smoking Tobacco: Never Assessed Sex and Gender Information Value Date Recorded Sex Assigned at Not on file Gender Identity Not on file Sexual Orientation Not on file documented as of this encounter Plan of Treatment Not on file documented as of this encounter Procedures Procedure Name Priority Date/Time Associated Diagnosis Comments PAP TEST- RESULT ONLY Routine 12/09/2010 0:00 EDT documented in this encounter Results * PAP TEST- RESULT ONLY (12/09/2010 0:00 EDT) Pathology Report: CYTOPATHOLOGY REPORT ? Reports generated via electronic interface contain original data; ? however they are lacking the format of the original report. ? Caution should be taken when reading/interpreti ng unformatted reports. ? Name: ? CESARIO LAMBERT ? Accession #: ? [id number] ? : ? 1975 (Age: 35) ??F ?Collect Date: ? 12/09/2010 ? Location: ? [facility] ? Receive Date: ? 12/13/2010 ? Provider: ?GUZMAN JACOBSON MD ? Copy to: ? Specimen/Source: ?Pap Test, Cervix/Endocervix, ThinPrep Imaging System ? with manual evaluation ? Last Menstrual Period: ? SPECIMEN ADEQUACY ? Satisfactory for Evaluation ? - transformation zone component present ? GENERAL CATEGORIZATION ? Negative for Intraepithelial Lesion or Malignancy ? Document reviewed and electronically signed by: ? Holly Guardado, SCT(ASCP) ? Report Date: ??12/15/2010 15:19 ? End of Report ? [facility] 12/09/2010 12/13/2010 Guzman Jacobson MD PATHOLOGY ORDERABLES Performing Organization Address City/State/[place] de Phone Number [id number] [address] documented in this encounter Visit Diagnoses Not on filedocumented in this encounter
--- OUTSIDE RECORDS SUMMARY | 2024-04-03 18:13 | XMS_ITS | Encounter Summary ---
Author Organization [facility] Address [address] [place] [address] Care Team Providers Care Stake Setter Name Role Phone Court Mccormick MD Primary Care Provider [phone] Encounter Details Date Type Department Care Team (Late st Contact Info) Description 02/01/2023 Lab Requisition [facility] Pathology & Laboratory Medicine - [address] [address] Outr Resulting Lab, Provider Social History Tobacco Use Types Packs/Day Years Used Date Smoking Tobacco: Never Assessed Interpersonal Safety Answer Date Record ed Physically Hurt Never 02/22/2020 Verbally Threaten Not on file 02/22/2020 Sex and Gender Information Value Date Recorded Sex Assigned at Not on file Gender Identity Not on file Sexual Orientation Not on file documented as of this encounter Plan of Treatment Not on file documented as of this encounter Procedures Procedure Name Priority Date/Time Associated Diagnosis Comments LYME AB Routine 01/31/2023 15:30 EDT documented in this encounter Results * LYME AB (01/31/2023 15:30 EDT) Lyme Ab Negative Negative 02/02/2023 10:20 EDT [facility] Blood VENOUS BLOOD / Unknown 01/31/2023 15:30 EDT 02/01/2023 20:08 EDT Provider Outr Resulting Lab IMMUNOLOGY A ND SEROLOGY ORDERABLES [facility] [address] [place] [address] documented in this encounter Visit Diagnoses Not on filedocumented in this encounter Care Teams Stake Setter Relationship Specialty Start Date End Date Court Mccormick MD [address] [place] [phone] PCP - General 08/21/18 documented as of this encounter
--- OUTSIDE RECORDS SUMMARY | 2024-04-03 18:13 | XMS_ITS | Referral Summary ---
Author Organization [facility] Address [address] [place] [address] Care Team Providers Care Wheat And Oats Flake Miller Name Role Phone Court Mccormick MD Primary Care Provider [phone] Social History Tobacco Use Types Packs/Day Years Used Date Smoking Tobacco: Never Assessed Interpersonal Safety Answer Date Record ed Physically Hurt Never 02/22/2020 Verbally Threaten Not on file 02/22/2020 Sex and Gender Information Value Date Recorded Sex Assigned at Not on file Gender Identity Not on file Sexual Orientation Not on file Plan of Treatment Not on file Care Teams Wheat And Oats Flake Miller Relationship Specialty Start Date End Date Court Mccormick MD [address] [place] [phone] PCP - General 08/21/18
--- OUTSIDE RECORDS SUMMARY | 2024-04-03 18:13 | XMS_ITS | Encounter Summary ---
Author Organization [facility] Address [address] [place] [address] Care Team Providers Care Shipping And Receiving Associate Name Role Phone Casa Holden Primary Care Provider [phone] Encounter Details Date Type Department Care Team ([facility] st Contact Info) Description 03/06/2014 Results Only [facility] Laboratory Services - [facility] ([facility]) [address] [place], [place] [phone] Court Duffy MD [address] [place] [address] Social History Tobacco Use Types Packs/Day Years [...] Diagnosis Comments PAP TEST- RESULT ONLY Routine 03/06/2014 0:00 EDT documented in this encounter Results * PAP TEST- RESULT ONLY (03/06/2014 0:00 EDT) Pathology Report: CYTOPATHOLOGY REPORT Reports generated via electronic interface contain original data; however they are lacking the format of the original report. Caution should be taken when reading/interpreti ng unformatted reports. Name: ? CESARIO LAMBERT ? Accession #: ? [id number] : ? 1975 (Age: 38) ??F ?Collect Date: ? 03/06/2014 Location: ? [facility] ? Receive Date: ? 03/10/2014 Provider: ?COURT DUFFY MD Copy to: ? Specimen/Source: ?Pap Test, Cervix, ThinPrep Imaging System with manual evaluation Last Menstrual Period: ? SPECIMEN ADEQUACY ? Unsatisfactory for Evaluation - obscuring contamination, possibly lubricant, which precludes interpretation of 75% or more of the epithelial cells GENERAL CATEGORIZATION ? Specimen processed and examined, but unsatisfactory for evaluation of epithelial abnormality. ??Recommend repeat Pap test in 2-4 months as stated in ASCCP's 2012 Updated Consensus Guidelines. ? Document reviewed and electronically signed by: ? SANYA Alba([facility]) ? Report Date: ??03/16/2014 14:03 End of Report [facility] 03/06/2014 03/10/2014 [address] Duffy MD PATHOLOGY ORDERABLE S [facility] [address] [place] [address] documented in this encounter Visit Diagnoses Not on filedocumented in this encounter Care Teams Shipping And Receiving Associate Relationship Specialty Start Date End Date Casa Holden DO [address] [place] [phone] PCP - General 12/27/11 08/20/18 documented as of this encounter
--- OUTSIDE RECORDS SUMMARY | 2024-04-03 18:13 | XMS_ITS | Encounter Summary ---
Author Organization [facility] Address [address] [place] [address] Care Team Providers Care Digital Operations Analyst Name Role Phone Court Mccormick MD Primary Care Provider [phone] Encounter Details Date Type Department Care Team (Latest Contact Info) Description 11/10/2021 Lab Requisition [facility] Pathology & Laboratory Medicine - [address] [address] Mary Florentino FNP [address] [place] [address] [place] [address] [phone] Encounter for general adult medical examination without abnormal findings; Encounter for screening for malignant neoplasm of cervix; Encounter for gynecological examination (general) (routine) without abnormal findings Social History Tobacco Use Types Packs/Day Years [...] Procedure Name Priority Date/Time Associated Diagnosis Comments CHLAMYDIA/N. GONORRHOEAE AMPLIFIED NUCLEIC ACID, THINPREP Today 11/09/2021 15:30 EDT PAP TEST Today 11/09/2021 3:30 EDT Encounter for general adult medical examination without abnormal findings Encounter for screening for malignant neoplasm of cervix Encounter for gynecological examination (general) (routine) without abnormal findings HPV DNA DETECTION WITH GENOTYPING, PCR Today 11/09/2021 3:30 EDT Encounter for general adult medical examination without abnormal findings Encounter for screening for malignant neoplasm of cervix Encounter for gynecological examination (general) (routine) without abnormal findings documented in this encounter Results * CHLAMYDIA/N. GONORRHOEAE AMPLIFIED RNA, THINPREP (11/09/2021 15:30 EDT) Neisseria gonorrhoeae Result Negative Negative 11/11/2021 14:11 EDT [facility] Chlamydia trachomatis Result Negative Negative 11/11/2021 14:11 EDT [facility] Papanicolaou smear specimen (specimen) CERVIX UTERI STRUCTURE / Unknown 11/09/2021 15:30 EDT 11/11/2021 9:56 EDT Mary Florentino [facility] MICROBIOLOGY - GENER AL ORDERABLES Performing Organization Address [facility] de Phone Number [facility] [address] [place] [address] * HUMAN PAPILLOMAVIRUS (HPV) DETECTION-HIGH RISK TYPES (11/09/2021 3:30 EDT) HPV other High Risk types, PCR Negative Negative 11/16/2021 14:51 EDT [facility] Comment:No E6 or E7 mRNA is detected from HPV types 16,18,31,33,35,39,45,51,52,56,58,59,66, and 68 by medical sonographer mediated amplification. Papanicolaou smear specimen (specimen) CERVIX UTERI STRUCTURE / Unknown 11/09/2021 3:30 EDT 11/15/2021 15:17 EDT Mary Florentino [facility] MICROBIOLOGY - GENER AL ORDERABLES Performing Organization Address [facility] Co de Phone Number [facility] [address] [place] [address] * PAP TEST (11/09/2021 3:30 EDT) Specimens A. Cervix and/or Endocervix , ThinPrep Imaging System with Manual Evaluation 11/16/2021 14:52 EDT [facility] Specimen Adequacy Satisfactory for Evaluation - transformation zone component present 11/16/2021 14:52 [facility] General Categorization Negative for intraepithelial lesion or malignancy 11/16/2021 14:52 [facility] Attestation . 11/16/2021 14:52 [facility] at 1452 Clinical History See below 11/17/19 14:52 [facility] HPV The result for the Human Papillomavirus (HPV) Detection-High Risk Types is Negative. No E6 or E7 mRNA is detected from HPV types 16,18,31,33,35,39 ,45,51,52,56,58,5 9,66, and 68 by medical sonographer mediated amplification.Valarie ting was performed on specimen [id number] and was resulted on 11/16/2021 1441 EDT by AN[facility], LAB INSTRUMENT RESULTS IN 11/16/2021 14:52 T [facility] Performing Lab [facility] 11/16/2021 14:52 [facility] Scanned Images 11/16/2021 14:52 [facility] Papanicolaou smear specimen (specimen) CERVIX UTERI STRUCTURE / Unknown 11/09/2021 3:30 EDT 11/11/2021 12:48 EDT Mary STEIN PATHOLOGY ORDERABLES [facility] [address] [place] [address] documented in this encounter Visit Diagnoses Diagnosis Encounter for general adult medical examination without abnormal findings Unspecified general medical examination Encounter for screening for malignant neoplasm of cervix Screening for malignant neoplasm of the cervix Encounter for gynecological examination (general) (routine) without abnormal findings documented in this encounter Care Teams Digital Operations Analyst Relationship Specialty Start Date End Date Court Mccormick MD [address] [place] [address] PCP - General 08/21/18 documented as of this encounter
--- OUTSIDE RECORDS SUMMARY | 2024-04-03 18:13 | XMS_ITS | Clinical Summary ---
Author Organization [facility] Address [address] [place] [address] Care Team Providers Care Assistant Women'S Soccer Coach Name Role Phone Court Mccormick MD Primary Care Provider [phone] Social History Tobacco Use Types Packs/Day Years Used Date Smoking Tobacco: Never Assessed Interpersonal Safety Answer Date Record ed Physically Hurt Never 02/22/2020 Verbally Threaten Not on file 02/22/2020 Sex and Gender Information Value Date Recorded Sex Assigned at Not on file Gender Identity Not on file Sexual Orientation Not on file Plan of Treatment Health Maintenance Due Date Last Done Comments Hepatitis C Screen 1975 Hepatitis B Vaccine (1 of 3 - 19+ 3-dose series) 09/24 COVID-19 Vaccine (2022- season) 2024 Care Teams Assistant Women'S Soccer Coach Relationship Specialty Start Date End Date Court Mccormick MD [address] [place] [phone] PCP - General 08/21/18
--- OUTSIDE RECORDS SUMMARY | 2024-04-03 18:13 | XMS_ITS | Encounter Summary ---
Author Organization [facility] Address [address] [place] [address] Care Team Providers Care Guide Rail Cleaner Name Role Phone Casa Holden DO Primary Care Provider [phone] Encounter Details Date Type Department Care Team (Latest Contact Info) Description 08/19/2018 16:39 EST - 08/19/2018 23:59 EST Hospital Encounter [address] [address] Unknown, Provider, Discharge Disposition: Home or Self Care Social History Tobacco Use Types Packs/Day Years Used Date Smoking Tobacco: Never Assessed Sex and Gender Information Value Date Recorded Sex Assigned at Not on file Gender Identity Not on file Sexual Orientation Not on file documented as of this encounter Discharge Disposition Disposition Code Departure Means Destination Home or Self [facility] documented in this encounter Plan of Treatment Not on file documented as of this encounter Visit Diagnoses Not on filedocumented in this encounter Care Teams Guide Rail Cleaner Relationship Specialty Start Date End Date Casa Holden DO [address] [place] [address] PCP - General 12/27/11 08/20/18 documented as of this encounter
--- OUTSIDE RECORDS SUMMARY | 2024-04-03 18:13 | XMS_ITS | Encounter Summary ---
Author Organization [facility] Address [address] [place] [address] Care Team Providers Care Straight Cutter Machine Name Role Phone Clement Holden Primary Care Provider [phone] Encounter Details Date Type Department Care Team (Late st Contact Info) Description 12/26/2011 Results Only [facility] Laboratory Services - [facility] ([facility]) [address] [place], [place] [id number] Guzman Jacobson MD [address] [place] [address] Social History Tobacco Use Types Packs/Day Years Used Date Smoking Tobacco: Never Assessed Sex and Gender Information Value Date Recorded Sex Assigned at Not on file Gender Identity Not on file Sexual Orientation Not on file documented as of this encounter Plan of Treatment Not on file documented as of this encounter Procedures Procedure Name Priority Date/Time Associated Diagnosis Comments SURGICAL PATHOLOGY Routine 12/26/2011 0:00 EDT documented in this encounter Results * SURGICAL PATHOLOGY (12/26/2011 0:00 EDT) Pathology Report: SURGICAL PATHOLOGY REPORT Reports generated via electronic interface contain original data; however they are lacking the format of the original report. Caution should be taken when reading/interpreti ng unformatted reports. Name: ? CESARIO LAMBERT ? Accession #: ? [id number] ? : ? 1975 (Age: 36) ??F ? Collect Date: ? 12/26/2011 ? Location: ? [facility] ? Receive Date: ? 12/27/2011 ? Provider: GUZMAN JACOBSON MD Copy to: CLEMENT HOLDEN DO ? Final Pathologic Diagnosis: ? Endometrium, curettage: - Proliferative endometrium with focal disordered growth pattern. ?? Document reviewed and electronically signed by: KIMANI JOHNSON MD Report ??Date: 01/01/2012 15:37 By the signature above, the attending physician certifies that he/she has personally conducted a gross and/or microscopic examination of the described specimens and rendered or confirmed the above diagnosis. Specimen(s) Received: ? Endometrial curettings Clinical History: ? Menometrorrhagia; dysmenorrhea; clinical diagnosis code: 626.2, 625.3, V25.2 Gross Description: ? Received in formalin labelled Cesario Lambert and endometrial curettings is a 2.5 x 2.5 x 0.7 cm aggregate of larios-red, hemorrhagic tissue fragments. ??The specimen is filtered and entirely submitted as (A1) and (A2). (Krystal Heard)/mendy End of Report JU[facility] PEREYRA 12/26/2011 12/27/2011 22: 32 EDT Guzman Jacobson MD PATHOLOGY ORDERABLES [facility] [address] [place] [address] documented in this encounter Visit Diagnoses Not on filedocumented in this encounter Care Teams Straight Cutter Machine Relationship Specialty Start Date End Date Clement Holden DO [address] [place] [address] PCP - General 12/27/11 08/20/18 documented as of this encounter
--- OUTSIDE RECORDS SUMMARY | 2024-04-03 18:13 | XMS_ITS | Encounter Summary ---
Author Organization [facility] Address [address] [place] [address] Care Team Providers Care Online Media Buyer Name Role Phone Unavailable Primary Care Provider Unavailabl e Encounter Details Date Type Department Care Team (Late st Contact Info) Description 10/31/2007 Results Only [facility] [address] [place] [address] Andreas Mays ARNP [address] [place] [address] Social History Tobacco Use Types Packs/Day Years Used Date Smoking Tobacco: Never Assessed Sex and Gender Information Value Date Recorded Sex Assigned at Not on file Gender Identity Not on file Sexual Orientation Not on file documented as of this encounter Plan of Treatment Not on file documented as of this encounter Procedures Procedure Name Priority Date/Time Associated Diagnosis Comments CYTOPATHOLOGY Routine 10/31/2007 0:00 EDT documented in this encounter Results * CYTOPATHOLOGY (10/31/2007 0:00 EDT) Pathology Report: CYTOPATHOLOGY REPORT Reports generated via electronic interface contain original data; however they are lacking the format of the original report. Caution should be taken when reading/interpreti ng unformatted reports. Name: ? CESARIO LAMBERT ? Accession #: ? [id number] : ? 1975 (Age: 32) ??F ?Collect Date: ? 10/31/2007 Location: ? [facility] ? Receive Date: ? 11/04/2007 Provider: ?ANDREAS MORGAN Copy to: ? Specimen/Source: ?ThinPrep Pap Test, Cervix/Endocervix, processed on [facility] ThinPrep Imaging System, with manual evaluation Last Menstrual Period: ? 08-31-07 Menstrual/Pregnanc y Status: ? Other: ? HPVA - HPV testing requested if ASC-US on the current ThinPrep Pap test. ? SPECIMEN ADEQUACY ? Satisfactory for Evaluation - transformation zone component present GENERAL CATEGORIZATION ? Negative for Intraepithelial Lesion or Malignancy ? Document reviewed and electronically signed by: ? Holly Guardado, SCT(ASCP) ? Report Date: ??11/07/2007 09:46 End of Report JUAN PEREYRA 10/31/2007 11/04/2007 Andreas MORGAN PATHOLOGY ORDERAB LES [facility] PEREYRA [address] [place] [address] documented in this encounter Visit Diagnoses Not on filedocumented in this encounter
--- OUTSIDE RECORDS SUMMARY | 2024-04-03 18:13 | XMS_ITS | Encounter Summary ---
Author Organization [facility] Address [address] [place] [address] Care Team Providers Care Screen Printing Equipment Setter Name Role Phone Casa Holden DO Primary Care Provider [phone] Encounter Details Date Type Department Care Team (Late st Contact Info) Description 09/13/2016 Results Only [facility] [phone] Court Duffy MD [address] [place] [address] Social History Tobacco Use Types [...] Diagnosis Comments PAP TEST- RESULT ONLY Routine 09/13/2016 0:00 EST documented in this encounter Results * PAP TEST- RESULT ONLY (09/13/2016 0:00 EST) Pathology Report: CYTOPATHOLOGY REPORT Reports generated via electronic interface contain original data; however they are lacking the format of the original report. Caution should be taken when reading/interpreti ng unformatted reports. Name: ? CESARIO LAMBERT ? Accession #: ? [id number] ? : ? 1975 (Age: 40) ??F ?Collect Date: ? 09/13/2016 ? Location: ? [facility] ? Receive Date: ? 09/15/2016 ? Provider: COURT DUFFY MD Copy to: ? Final Report SPECIMEN ADEQUACY ? Satisfactory for Evaluation - transformation zone component absent GENERAL CATEGORIZATION ? Negative for Intraepithelial Lesion or Malignancy ?? Last Menstrual Period: X years ago Hormonal/Contracep tive status: None Specimen/Source: ??Pap Test, Cervix, ThinPrep Imaging System with manual evaluation Document reviewed and electronically signed by: ? Ciara Benjamin, [place](ASCP) ? Report ??Date: 09/20/2016 11:02 HPV with Pap Test ? Date Ordered: ? 09/20/2016 ? Status: ?? Signed Out ?Date Complete: ? 09/21/2016 ? By: ??System Interface ? Date Reported: ? 09/21/2016 ? Interpretation RESULT: Negative for HPV. No E6 or E7 mRNA is detected from HPV types 16,18,31,33,35, 39,45,51,52,56,58, 59,66, and 68 by railroad crane operator mediated amplification. Comments Document reviewed and electronically signed by: ? System Interface ? Report date: 09/21/2016 By the signature above, the attending physician certifies that he/she has personally conducted a gross and/or microscopic examination of the described specimens and rendered or confirmed the above diagnosis. End of Report [facility] 09/13/2016 09/15/2016 Court Duffy MD PATHOLOGY ORDERABLE S [facility] [address] [place] [address] documented in this encounter Visit Diagnoses Not on filedocumented in this encounter Care Teams Screen Printing Equipment Setter Relationship Specialty Start Date End Date Casa Holden DO [address] [place] [address] PCP - General 12/27/11 08/20/18 documented as of this encounter
== END 2024-04-03 18:12 | disposition home or self-care (01) ==
LOC: NCHCN 18:11
PROVIDERS: PCP Family Medicine; Visit Provider Nurse Practitioner Family
DX: N39.0 Urinary tract infection, site not specified (principal); R82.89 Other abnormal findings on cytological and histological examination of urine
CPT/HCPCS: 81003; 81015; 87086

== ENCOUNTER 2024-04-24 15:28 | Outpatient (REF) | payer BC, SELFPAY ==
[2024-04-24 14:48] LABS: Bilirubin Negative (Negative); Blood Negative (Negative); Clarity Cloudy (Clear); Glucose Negative (Negative); Ketones Negative (Negative); Leukocyte Esterase Negative (Negative); Nitrite Negative (Negative); Specific Gravity 1.025 (1.005-1.025); Urobilinogen 0.2 mg/dL (Up to 0.2); pH 5.5 (5-8)
--- OUTSIDE RECORDS SUMMARY | 2024-04-24 15:30 | XMS_ITS | Clinical Summary ---
Author Organization [facility] Address [address] [place] [address] Care Team Providers Care Fire Sprinkler Service Technician Name Role Phone Court Mccormick MD Primary Care Provider [phone] Encounters Date Type Department Care Team Description 04/24/2024 Lab Requisition [facility] Pathology & Laboratory Medicine - [facility] [address] [place] [address] Outr Resulting Lab, Provider from Last 3 Months Social History Tobacco Use Types Packs/Day Years [...] - 19+ 3-dose series) 09/24 COVID-19 Vaccine ( season) 2024 Care Teams Fire Sprinkler Service Technician Relationship Specialty Start Date End Date Court Mccormick MD [address] [place] [phone] PCP - General 08/21/18
--- OUTSIDE RECORDS SUMMARY | 2024-04-24 15:30 | XMS_ITS | Encounter Summary ---
Author Organization [facility] Address [address] [place] [address] Care Team Providers Care Care Professional Name Role Phone Casa Holden Primary Care Provider [phone] Encounter Details Date Type Department Care Team ([facility] st Contact Info) Description 03/06/2014 Results Only [facility] Laboratory Services - [facility] ([facility]) [address] [place], [place] [address] Court Duffy MD [address] [place] [address] Social History Tobacco Use Types [...] ? CESARIO LAMBERT ? Accession #: ? [id number] : ? 1975 (Age: 38) ??F ?Collect [...] reviewed and electronically signed by: ? SANYA Alba([facility]) ? Report Date: ??03/16/2014 14:03 End of Report JUAN PEREYRA 03/06/2014 03/10/2014 Court Duffy MD PATHOLOGY ORDERABLE S [facility] [address] [place] [address] documented in this encounter Visit Diagnoses Not on filedocumented in this encounter Care Teams Care Professional Relationship Specialty Start Date End Date Casa Holden DO [address] [place] [phone] PCP - General 12/27/11 08/20/18 documented as of this encounter
--- OUTSIDE RECORDS SUMMARY | 2024-04-24 15:30 | XMS_ITS | Encounter Summary ---
Author Organization [facility] Address [address] [place] [address] Care Team Providers Care Inspector Missile Name Role Phone Casa Holden DO Primary Care Provider [phone] Encounter Details Date Type Department Care Team (Latest Contact Info) Description 08/19/2018 16:39 EST - 08/19/2018 23:59 EST Hospital Encounter [address] [address] Unknown, Provider, Discharge Disposition: Home or Self Care Social History Tobacco Use Types Packs/Day Years Used Date Smoking Tobacco: Never Assessed Sex and Gender Information Value Date Recorded Sex Assigned at Not on file Gender Identity Not on file Sexual Orientation Not on file documented as of this encounter Discharge Disposition Disposition Code Departure Means Destination Home or Self Jail documented in this encounter Plan of Treatment Not on file documented as of this encounter Visit Diagnoses Not on filedocumented in this encounter Care Teams Inspector Missile Relationship Specialty Start Date End Date Casa Holden DO [address] [place] [address] PCP - General 12/27/11 08/20/18 documented as of this encounter
--- OUTSIDE RECORDS SUMMARY | 2024-04-24 15:30 | XMS_ITS | Encounter Summary ---
Author Organization [facility] Address [address] [place] [address] Care Team Providers Care Rag Washer Name Role Phone Unavailable Primary Care Provider Unavailabl e Encounter Details Date Type Department Care Team (Late st Contact Info) Description 12/09/2010 Results Only [facility] Laboratory Services - [facility] ([facility]) [address] [place], [place] [phone] Guzman Jacobson MD [address] [place] [address] Social History Tobacco Use Types Packs/Day Years [...] ? CESARIO LAMBERT ? Accession #: ? [id number] ? : ? 1975 (Age: 35) ??F [...] Jacobson MD PATHOLOGY ORDERABLES Performing Organization Address City/State/[facility] Co de Phone Number [address] [address] documented in this encounter Visit Diagnoses Not on filedocumented in this encounter
--- OUTSIDE RECORDS SUMMARY | 2024-04-24 15:30 | XMS_ITS | Encounter Summary ---
Author Organization [facility] Address [address] [place] [address] Care Team Providers Care Activity Assistant Name Role Phone Casa Holden DO Primary Care Provider [phone] Encounter Details Date Type Department Care Team (Late st Contact Info) Description 09/13/2016 Results Only [facility] [phone] Court Duffy MD [address] [place] [address] Social History Tobacco Use Types [...] ? CESARIO LAMBERT ? Accession #: ? [id number] ? : ? 1975 (Age: 40) ??F [...] types 16,18,31,33,35, 39,45,51,52,56,58, 59,66, and 68 by casino change attendant mediated amplification. Comments Document reviewed and electronically signed by: ? System Interface ? Report date: 09/21/2016 By the signature above, the attending physician certifies that he/she has personally conducted a gross and/or microscopic examination of the described specimens and rendered or confirmed the above diagnosis. End of Report [facility] 09/13/2016 09/15/2016 Court Duffy MD PATHOLOGY ORDERABLE S [facility] [address] [place] [address] documented in this encounter Visit Diagnoses Not on filedocumented in this encounter Care Teams Activity Assistant Relationship Specialty Start Date End Date Casa Holden DO [address] [place] [address] PCP - General 12/27/11 08/20/18 documented as of this encounter
--- OUTSIDE RECORDS SUMMARY | 2024-04-24 15:30 | XMS_ITS | Encounter Summary ---
Author Organization [facility] Address [address] [place] [address] Care Team Providers Care International Trade Teacher Name Role Phone Court Mccormick MD Primary Care Provider [phone] Encounter Details Date Type Department Care Team (Late st Contact Info) Description 02/01/2023 Lab Requisition [facility] Pathology & Laboratory Medicine - [address] [phone] Outr Resulting Lab, Provider Social History Tobacco [...] Lyme Ab Negative Negative 02/02/2023 10:20 EDT [facility] Blood VENOUS BLOOD / Unknown 01/31/2023 15:30 EDT 02/01/2023 20:08 EDT Provider Outr Resulting Lab IMMUNOLOGY A ND SEROLOGY ORDERABLES [facility] [address] [place] [address] documented in this encounter Visit Diagnoses Not on filedocumented in this encounter Care Teams International Trade Teacher Relationship Specialty Start Date End Date Court Mccormick MD [address] [place] [address] PCP - General 08/21/18 documented as of this encounter
--- OUTSIDE RECORDS SUMMARY | 2024-04-24 15:30 | XMS_ITS | Encounter Summary ---
Author Organization [facility] Address [address] [place] [address] Care Team Providers Care Safety Supervisor Name Role Phone PortlandCasa white Primary Care Provider [phone] Encounter Details Date Type Department Care Team (Late st Contact Info) Description 08/19/2018 Results Only [facility] [phone] Praneeth Fairbanks, DO [address] [place] [address] Social History Tobacco Use Types [...] ? CESARIO LAMBERT ? Accession #: ? [id number] ? : ? 1975 (Age: 42) ??F [...] x 0.2 cm) is present. ? Two sales representative graphic art sections and the inked en face cystic duct margin are submitted in 1. DEVON Echevarria (ASCP) 08/20/2018 10:31 AM End of Report [facility] 08/19/2018 9:55 EST 08/20/2018 9:55 EST Praneeth Fairbanks DO PATHOLOGY ORDERABL ES [facility] [address] [place] [address] documented in this encounter Visit Diagnoses Not on filedocumented in this encounter Care Teams Safety Supervisor Relationship Specialty Start Date End Date Casa Holden DO [address] [place] [phone] PCP - General 12/27/11 08/20/18 documented as of this encounter
--- OUTSIDE RECORDS SUMMARY | 2024-04-24 15:30 | XMS_ITS | Encounter Summary ---
Author Organization [facility] Address [address] [place] [address] Care Team Providers Care Health Care Administrator Name Role Phone Court Mccormick MD Primary Care Provider [phone] Encounter Details Date Type Department Care Team (Late st Contact Info) Description 04/24/2024 Lab Requisition [facility] Pathology & Laboratory Medicine - [address] [address] Outr Resulting Lab, Provider Social History Tobacco [...] as of this encounter Plan of Treatment Scheduled Orders Name Type Priority Associated Diagnoses Orde r Schedule [facility] Lab Routine Ordered: 04/24 documented as of this encounter Visit Diagnoses Not on filedocumented in this encounter Care Teams Health Care Administrator Relationship Specialty Start Date End Date Court Mccormick MD [address] [place] [address] PCP - General 08/21/18 documented as of this encounter
--- OUTSIDE RECORDS SUMMARY | 2024-04-24 15:30 | XMS_ITS | Encounter Summary ---
Author Organization [facility] Address [address] [place] [address] Care Team Providers Care Director Of Diversity And Inclusion Name Role Phone Court Mccormick MD Primary Care Provider [phone] Encounter Details Date Type Department Care Team (Latest Contact Info) Description 11/10/2021 Lab Requisition [facility] Pathology & Laboratory Medicine - [address] [address] Mary Florentino FNP [address] [place] [address] [place] [address] [phone] Encounter for general adult medical examination without [...] gonorrhoeae Result Negative Negative 11/11/2021 14:11 EDT [facility] Chlamydia trachomatis Result Negative Negative 11/11/2021 14:11 EDT [facility] Papanicolaou smear specimen (specimen) CERVIX UTERI STRUCTURE / Unknown 11/09/2021 15:30 EDT 11/11/2021 9:[address] [facility] MICROBIOLOGY - GENER AL ORDERABLES Performing Organization Address [facility] de Phone Number [facility] [address] [place] [address] * HUMAN PAPILLOMAVIRUS (HPV) DETECTION-HIGH RISK TYPES (11/09/2021 3:30 EDT) HPV other High Risk types, PCR Negative Negative 11/16/2021 14:51 EDT [facility] Comment:No E6 or E7 mRNA is detected from HPV types 16,18,31,33,35,39,45,51,52,56,58,59,66, and 68 by human resources executive assistant mediated amplification. Papanicolaou smear specimen (specimen) CERVIX UTERI STRUCTURE / Unknown 11/09/2021 3:30 EDT 11/15/2021 15:[address] [facility] MICROBIOLOGY - GENER AL ORDERABLES Performing Organization Address [facility] Co de Phone Number [facility] [address] [place] [address] * PAP TEST (11/09/2021 3:30 EDT) Specimens A. Cervix and/or Endocervix , ThinPrep Imaging System with Manual Evaluation 11/16/2021 14:52 EDT [facility] Specimen Adequacy Satisfactory for Evaluation - transformation zone component present 11/16/2021 14:52 [facility] General Categorization Negative for intraepithelial lesion or malignancy 11/16/2021 14:52 [facility] Attestation . 11/16/2021 14:52 [facility] at 1452 Clinical History See below 11/17/19 14:52 [facility] HPV The result for the Human Papillomavirus (HPV) Detection-High Risk Types is Negative. No E6 or E7 mRNA is detected from HPV types 16,18,31,33,35,39 ,45,51,52,56,58,5 9,66, and 68 by human resources executive assistant mediated amplification.Valarie ting was performed on specimen [id number] and was resulted on 11/16/2021 1441 EDT by ANCA, LAB INSTRUMENT RESULTS IN 11/16/2021 14:52 T [facility] Performing Lab [facility] 11/16/2021 14:52 [facility] Scanned Images 11/16/2021 14:52 [facility] Papanicolaou smear specimen (specimen) CERVIX UTERI STRUCTURE / Unknown 11/09/2021 3:30 EDT 11/11/2021 12:48 EDT Mary STEIN PATHOLOGY ORDERABLES [facility] [address] [place] [address] documented in this encounter Visit Diagnoses Diagnosis Encounter for general adult medical examination without abnormal findings Unspecified general medical examination Encounter for screening for malignant neoplasm of cervix Screening for malignant neoplasm of the cervix Encounter for gynecological examination (general) (routine) without abnormal findings documented in this encounter Care Teams Director Of Diversity And Inclusion Relationship Specialty Start Date End Date Court Mccormick MD [address] [place] [address] PCP - General 08/21/18 documented as of this encounter
--- OUTSIDE RECORDS SUMMARY | 2024-04-24 15:30 | XMS_ITS | Encounter Summary ---
Author Organization [facility] Address [address] [place] [address] Care Team Providers Care Tea Tree Farmer Name Role Phone Clement Holden Primary Care Provider Encounter Details Date Type Department Care Team (Late st Contact Info) Description 12/26/2011 Results Only [facility] Laboratory Services - [facility] ([facility]) [address] [place], [place] [address] Guzman Jacobson MD [address] [place] [address] Social History Tobacco Use Types Packs/Day Years [...] ? CESARIO LAMBERT ? Accession #: ? [id number] ? : ? 1975 (Age: 36) ??F [...] Jacobson MD PATHOLOGY ORDERABLES [facility] [address] [place] [address] documented in this encounter Visit Diagnoses Not on filedocumented in this encounter Care Teams Tea Tree Farmer Relationship Specialty Start Date End Date Clement Holden DO [address] [place] [address] PCP - General 12/27/11 08/20/18 documented as of this encounter
--- OUTSIDE RECORDS SUMMARY | 2024-04-24 15:30 | XMS_ITS | Referral Summary ---
Author Organization [facility] Address [address] [place] [address] Care Team Providers Care Insole And Heel Stiffener Name Role Phone Court Mccormick MD Primary Care Provider [phone] Encounters Date Type Department Care Team Description 04/24/2024 Lab Requisition [facility] Pathology & Laboratory Medicine - [facility] [address] [place] [address] Outr Resulting Lab, Provider from Last 3 [...] of Treatment Not on file Care Teams Insole And Heel Stiffener Relationship Specialty Start Date End Date Court Mccormick MD [facility] [place] [phone] PCP - General 08/21/18
--- OUTSIDE RECORDS SUMMARY | 2024-04-24 15:30 | XMS_ITS | Encounter Summary ---
Author Organization [facility] Address [address] [place] [address] Care Team Providers Care Outside Residential Sales Professional Name Role Phone Unavailable Primary Care Provider Unavailabl e Encounter Details Date Type Department Care Team (Late st Contact Info) Description 10/31/2007 Results Only [facility] conversion [address] [place] [address] Andreas Mays ARNP [address] [place] [address] Social History Tobacco Use Types Packs/Day Years [...] ? CESARIO LAMBERT ? Accession #: ? [id number] : ? 1975 (Age: 32) ??F ?Collect Date: ? 10/31/2007 Location: ? [facility] ? Receive Date: ? 11/04/2007 Provider: ?ANDREAS MORGAN Copy to: ? Specimen/Source: ?ThinPrep Pap Test, Cervix/Endocervix, processed on [employer] ThinPrep Imaging System, with manual evaluation Last [...] MORGAN PATHOLOGY ORDERAB LES [facility] [address] [place] [address] documented in this encounter Visit Diagnoses Not on filedocumented in this encounter
== END 2024-04-24 15:29 | disposition home or self-care (01) ==
LOC: NCHCN 15:28
PROVIDERS: PCP Family Medicine; Visit Provider Family Medicine
DX: N39.0 Urinary tract infection, site not specified (principal); B96.29 Other Escherichia coli [E. coli] as the cause of diseases classified elsewhere
CPT/HCPCS: 87077; 81003; 83001; 87086; 87186

== ENCOUNTER 2024-07-24 09:36 | Outpatient (REF) | payer BC, SELFPAY ==
--- OUTSIDE RECORDS SUMMARY | 2024-07-24 09:38 | XMS_ITS | Encounter Summary ---
Author Organization [facility] Address [address] [place] [address] Care Team Providers Care Geriatrician Name Role Phone Court Mccormick MD Primary Care Provider [phone] Encounter Details Date Type Department Care Team (Late st Contact Info) Description 02/01/2023 Lab Requisition [facility] Pathology & Laboratory Medicine - [address] [address] Outr Resulting Lab, Provider Social History Tobacco Use Types Packs/Day Years Used Date Smoking Tobacco: Never Assessed Interpersonal Safety Answer Date Record ed Physically Hurt Never 02/22/2020 Verbally Threaten Not on file 02/22/2020 Comments Unknown Sex and Gender Information Value Date Recorded Sex Assigned at Not on file Legal Sex Female 18:21 EST Gender Identity Not on file Sexual Orientation Not on file documented as of this encounter Plan of Treatment Not on file documented as of this encounter Procedures Procedure Name Priority Date/Time Associated Diagnosis Comments LYME AB Routine 01/31/2023 15:30 EDT documented in this encounter Results * LYME AB (01/31/2023 15:30 EDT) Lyme Ab Negative Negative 02/02/2023 10:20 EDT [facility] Blood VENOUS BLOOD / Unknown 01/31/2023 15:30 EDT 02/01/2023 20:08 EDT us Provider Outr Resulting Lab IMMUNOLOGY AND SEROL OGY ORDERABLES Final Result [facility] [address] [place] [address] documented in this encounter Visit Diagnoses Not on filedocumented in this encounter Care Teams Geriatrician Relationship Specialty Start Date End Date Court Mccormick MD [address] [place] [address] PCP - General 08/21/18 documented as of this encounter
--- OUTSIDE RECORDS SUMMARY | 2024-07-24 09:38 | XMS_ITS | Clinical Summary ---
Author Organization [facility] Address [address] [place] [address] Care Team Providers Care Merchandise Carrier Name Role Phone Court Mccormick MD Primary Care Provider [phone] Encounters Date Type Department Care Team Description 04/24/2024 Lab Requisition [facility] Pathology & Laboratory Medicine - [facility] [address] [place] [address] Outr Resulting Lab, Provider from Last 3 [...] COVID-19 Vaccine ( season) 2024 Care Teams Merchandise Carrier Relationship Specialty Start Date End Date Court Mccormick MD [address] [place] [address] PCP - General 08/21/18
--- OUTSIDE RECORDS SUMMARY | 2024-07-24 09:38 | XMS_ITS | Encounter Summary ---
Author Organization [facility] Address [address] [place] [address] Care Team Providers Care Woodworking Belt Sander Name Role Phone Court Mccormick MD Primary Care Provider [phone] Encounter Details Date Type Department Care Team (Late st Contact Info) Description 04/24/2024 Lab Requisition [facility] Pathology & Laboratory Medicine - [address] [address] Outr Resulting Lab, Provider Social History Tobacco [...] on filedocumented in this encounter Care Teams Woodworking Belt Sander Relationship Specialty Start Date End Date Court Mccormick MD [address] [place] [address] PCP - General 08/21/18 documented as of this encounter
--- OUTSIDE RECORDS SUMMARY | 2024-07-24 09:38 | XMS_ITS | Referral Summary ---
Author Organization [facility] Address [address] [place] [address] Care Team Providers Care Cashier Credit Name Role Phone Court Mccormick MD Primary Care Provider [phone] Encounters Date Type Department Care Team Description 04/24/2024 Lab Requisition [facility] Pathology & Laboratory Medicine - [facility] [address] [place] [address] Outr Resulting Lab, Provider from Last 3 [...] of Treatment Not on file Care Teams Cashier Credit Relationship Specialty Start Date End Date Court Mccormick MD [address] [place] [phone] PCP - General 08/21/18
--- OUTSIDE RECORDS SUMMARY | 2024-07-24 09:39 | XMS_ITS | Encounter Summary ---
Author Organization [facility] Address [address] [place] [address] Care Team Providers Care Chief Optometry Service Name Role Phone Clement Holden DO Primary Care Provider [phone] Encounter Details Date Type Department Care Team (Late st Contact Info) Description 12/26/2011 Results Only [facility] Laboratory Services - [facility] ([facility] [address] [place], [place] [phone] Guzman Jacobson MD [address] [place] [address] Social History Tobacco Use Types Packs/Day Years Used Date Smoking Tobacco: Never Assessed Comments Unknown Sex and Gender Information Value [...] ? CESARIO LAMBERT ? Accession #: ? [id number] ? : ? 1975 (Age: 36) ??F [...] Gross Description: ? Received in formalin labelled FaustoDezCesario and endometrial curettings is a 2.5 x 2.5 x 0.7 cm aggregate of larios-red, hemorrhagic tissue fragments. ??The specimen is filtered and entirely submitted as (A1) and (A2). (Krystal Heard)/ljn End of Report [facility] 12/26/2011 12/27/2011 22: 32 EDT us Guzman Jacobson MD PATHOLOGY ORDERABLES Final Res ult [facility] [address] [place] [address] documented in this encounter Visit Diagnoses Not on filedocumented in this encounter Care Teams Chief Optometry Service Relationship Specialty Start Date End Date Clement Holden DO [address] [place] [address] PCP - General 12/27/11 08/20/18 documented as of this encounter
--- OUTSIDE RECORDS SUMMARY | 2024-07-24 09:39 | XMS_ITS | Encounter Summary ---
Author Organization [facility] Address [address] [place] [address] Care Team Providers Care Resistor Coater Name Role Phone Unavailable Primary Care Provider Unavailabl e Encounter Details Date Type Department Care Team (Late st Contact Info) Description 12/09/2010 Results Only [facility] Laboratory Services - [facility] ([facility]) [address] [place], [place] [phone] Guzman Jacobson MD [address] [place] [address] Social History Tobacco Use Types Packs/Day Years [...] ? CESARIO LAMBERT ? Accession #: ? [id number] ? : ? 1975 (Age: 35) ??F [...] Report ? [facility] 12/09/2010 12/13/2010 us Guzman Jacobson MD PATHOLOGY ORDERABLES Final Res ult Performing Organization Address City/State/[facility] Co de Phone Number [facility] [address] [place] [address] documented in this encounter Visit Diagnoses Not on filedocumented in this encounter
--- OUTSIDE RECORDS SUMMARY | 2024-07-24 09:39 | XMS_ITS | Encounter Summary ---
Author Organization [facility] Address [address] [place] [address] Care Team Providers Care Heel Seater Name Role Phone Unavailable Primary Care Provider Unavailabl e Encounter Details Date Type Department Care Team (Late st Contact Info) Description 10/31/2007 Results Only [facility] [address] [place] [address] Andreas Mays ARNP [address] [place] [address] Social History Tobacco Use Types Packs/Day Years [...] when reading/interpreti ng unformatted reports. Name: ? SULEMAN CESARIO ? Accession #: ? [id number] : ? 1975 (Age: 32) ??F ?Collect Date: ? 10/31/2007 Location: ? [facility] ? Receive Date: ? 11/04/2007 Provider: ?ANDREAS MORGAN Copy to: ? Specimen/Source: ?ThinPrep Pap Test, Cervix/Endocervix, processed on [employer] ThinPrep Imaging System, with manual evaluation Last [...] [facility] 10/31/2007 11/04/2007 Andreas MORGAN PATHOLOGY ORDERABLES Barbara bautista Result [facility] [address] [place] [address] documented in this encounter Visit Diagnoses Not on filedocumented in this encounter
--- OUTSIDE RECORDS SUMMARY | 2024-07-24 09:39 | XMS_ITS | Encounter Summary ---
Author Organization [facility] Address [address] [place] [address] Care Team Providers Care Fountain Worker Name Role Phone Court Mccormick MD Primary Care Provider [phone] Encounter Details Date Type Department Care Team (Latest Contact Info) Description 11/10/2021 Lab Requisition [facility] Pathology & Laboratory Medicine - [facility] [address] [place] [address] Mary Florentino FNP [address] [place] [address] [address] [place] [address] Encounter for general adult medical examination without [...] gonorrhoeae Result Negative Negative 11/11/2021 14:[address] [facility] Chlamydia trachomatis Result Negative Negative 11/11/2021 14:[address] [facility] Papanicolaou smear specimen (specimen) CERVIX UTERI STRUCTURE / Unknown 11/09/2021 15:30 EDT 11/11/2021 9:56 EDT Mary Florentino [facility] MICROBIOLOGY - GENERAL ORDERABLE S Final Result Performing Organization Address [facility] Co de Phone Number [facility] [address] [place] [address] * HUMAN PAPILLOMAVIRUS (HPV) DETECTION-HIGH RISK TYPES (11/09/2021 3:30 EDT) HPV other High Risk types, PCR Negative Negative 11/16/2021 14:[address] [facility] Comment:No E6 or E7 mRNA is detected from HPV types 16,18,31,33,35,39,45,51,52,56,58,59,66, and 68 by channel director mediated amplification. Papanicolaou smear specimen (specimen) CERVIX UTERI STRUCTURE / Unknown 11/09/2021 3:30 EDT 11/15/2021 15:17 EDT Mary Florentino [facility] MICROBIOLOGY - GENERAL ORDERABLE S Final Result Performing Organization Address City/[facility] Co de Phone Number [facility] [address] [place] [address] * PAP TEST (11/09/2021 3:30 EDT) Specimens A. Cervix and/or Endocervix , ThinPrep Imaging System with Manual Evaluation 11/16/2021 14:52 [facility] Specimen Adequacy Satisfactory for Evaluation - transformation zone component present 11/16/2021 14:52 [facility] General Categorization Negative for intraepithelial lesion or malignancy 11/16/2021 14:52 [facility] Attestation . 11/16/2021 14:52 [facility] at 1452 Clinical History See below 11/17/19 14:52 [facility] HPV The result for the Human Papillomavirus (HPV) Detection-High Risk Types is Negative. No E6 or E7 mRNA is detected from HPV types 16,18,31,33,35,39 ,45,51,52,56,58,5 9,66, and 68 by channel director mediated amplification.Valarie ting was performed on specimen [id number] and was resulted on 11/16/2021 1441 EDT by ANCA, LAB INSTRUMENT RESULTS IN 11/16/2021 14:[address] [facility] Performing Lab [facility] 11/16/2021 14:52 [facility] Scanned Images 11/16/2021 14:52 [facility] Papanicolaou smear specimen (specimen) CERVIX UTERI STRUCTURE / Unknown 11/09/2021 3:30 EDT 11/11/2021 12:48 EDT Mary STEIN PATHOLOGY ORDERABLES Final Resul t [facility] [address] [place] [address] documented in this encounter Visit Diagnoses Diagnosis Encounter for general adult medical examination without abnormal findings Unspecified general medical examination Encounter for screening for malignant neoplasm of cervix Screening for malignant neoplasm of the cervix Encounter for gynecological examination (general) (routine) without abnormal findings documented in this encounter Care Teams Fountain Worker Relationship Specialty Start Date End Date Court Mccormick MD [address] [place] [address] PCP - General 08/21/18 documented as of this encounter
--- OUTSIDE RECORDS SUMMARY | 2024-07-24 09:39 | XMS_ITS | Encounter Summary ---
Author Organization [facility] Address [address] [place] [address] Care Team Providers Care Swatch Checker Name Role Phone Casa Holden DO Primary Care Provider [phone] Encounter Details Date Type Department Care Team (Late st Contact Info) Description 09/13/2016 Results Only [facility] [phone] Court Duffy MD [address] [place] [address] Social History Tobacco Use Types [...] ? CESARIO LAMBERT ? Accession #: ? [id number] ? : ? 1975 (Age: 40) ??F ? N #: ? [id number] ?Collect Date: ? 09/13/2016 ? Location: ? [...] types 16,18,31,33,35, 39,45,51,52,56,58, 59,66, and 68 by air brake mechanic mediated amplification. Comments Document reviewed and electronically signed by: ? System Interface ? Report date: 09/21/2016 By the signature above, the attending physician certifies that he/she has personally conducted a gross and/or microscopic examination of the described specimens and rendered or confirmed the above diagnosis. End of Report [facility] 09/13/2016 09/15/[address] Duffy MD PATHOLOGY ORDERABLES Final Result [facility] [address] [place] [address] documented in this encounter Visit Diagnoses Not on filedocumented in this encounter Care Teams Swatch Checker Relationship Specialty Start Date End Date Casa Holden DO [address] [place] [address] PCP - General 12/27/11 08/20/18 documented as of this encounter
--- OUTSIDE RECORDS SUMMARY | 2024-07-24 09:39 | XMS_ITS | Encounter Summary ---
Author Organization [facility] Address [address] [place] [address] Care Team Providers Care Imaging Tech Name Role Phone Casa Holden DO Primary Care Provider [phone] Encounter Details Date Type Department Care Team (Latest Contact Info) Description 08/19/2018 16:39 EST - 08/19/2018 23:59 EST Hospital Encounter [address] [address] Unknown, Provider, MD Discharge Disposition: Home or Self Care Social [...] Code Departure Means Destination Home or Self [facility] documented in this encounter Plan of Treatment Not on file documented as of this encounter Visit Diagnoses Not on filedocumented in this encounter Care Teams Imaging Tech Relationship Specialty Start Date End Date Casa Holden DO [address] [place] [address] PCP - General 12/27/11 08/20/18 documented as of this encounter
--- OUTSIDE RECORDS SUMMARY | 2024-07-24 09:39 | XMS_ITS | Encounter Summary ---
Author Organization [facility] Address [address] [place] [address] Care Team Providers Care Planogrammer Name Role Phone Casa Holden DO Primary Care Provider [phone] Encounter Details Date Type Department Care Team (Late st Contact Info) Description 03/06/2014 Results Only [facility] Laboratory Services - [facility] ([facility]) [address] [place], [place] [id number] Court Duffy MD [address] [place] [address] Social History Tobacco Use Types [...] ? CESARIO LAMBERT ? Accession #: ? [id number] : ? 1975 (Age: 38) ??F ?Collect [...] reviewed and electronically signed by: ? SANYA Alba([facility]) ? Report Date: ??03/16/2014 14:03 End of Report [facility] 03/06/2014 03/10/[address] Duffy MD PATHOLOGY ORDERABLES Final Result [facility] [address] [place] [address] documented in this encounter Visit Diagnoses Not on filedocumented in this encounter Care Teams Planogrammer Relationship Specialty Start Date End Date Casa Holden DO [address] [place] [address] PCP - General 12/27/11 08/20/18 documented as of this encounter
--- OUTSIDE RECORDS SUMMARY | 2024-07-24 09:39 | XMS_ITS | Encounter Summary ---
Author Organization [facility] Address [address] [place] [address] Care Team Providers Care Captain Assistant Name Role Phone Casa Holden DO Primary Care Provider [phone] Encounter Details Date Type Department Care Team (Late st Contact Info) Description 08/19/2018 Results Only [facility] [phone] Praneeth Fairbanks, DO [address] [place] [address] Social History Tobacco Use Types [...] ? CESARIO LAMBERT ? Accession #: ? [id number] ? : ? 1975 (Age: 42) ??F [...] x 0.2 cm) is present. ? Two eligibility services representative sections and the inked en face cystic duct margin are submitted in 1. DEVON Echevarria (ASCP) 08/20/2018 10:31 AM End of Report [facility] 08/19/2018 9:55 EST 08/20/2018 9:55 EST Praneeth Fairbanks DO PATHOLOGY ORDERABLES Final Result [facility] [address] [place] [address] documented in this encounter Visit Diagnoses Not on filedocumented in this encounter Care Teams Captain Assistant Relationship Specialty Start Date End Date Casa Holden DO [address] [place] [address] PCP - General 12/27/11 08/20/18 documented as of this encounter
[2024-07-24 22:58] LABS: FSH 71.5 mIU/mL (See Note)
== END 2024-07-24 09:37 | disposition home or self-care (01) ==
LOC: NCHCN 09:36
PROVIDERS: PCP Family Medicine; Visit Provider Family Medicine
DX: N95.1 Menopausal and female climacteric states (principal)
CPT/HCPCS: 83001

== ENCOUNTER 2024-08-22 13:39 | Outpatient (REF) | payer BC, SELFPAY ==
[2024-08-22 08:15] VITALS: BP 137/87; PULSE 82; RESP 18; TEMP 36.7; O2SAT 97
[2024-08-22] MEDS: Lactated Ringers 1,000 ML 80 ML IV (08:50)
--- NOTE | 2024-08-22 09:54 | ANES.PREOP_ITS ---
General Info Date of Service Date Performed: 08/22/24 Height: 5 ft 8 in Weight: 111.8 kg Body Mass Index (BMI): 37.5 Surgical Procedure: Operation Date: 08/22/24 09:35 Proposed Procedure Side Surgeon p David Weber MD Meds Allergies and Home Medications Allergies Allergy/AdvReac Type Severity Reaction Status Date / Time amoxicillin Allergy Severe Anaphylaxis Verified 08/20/24 14:59 Cephalosporins Allergy Severe Anaphylaxis Verified 08/20/24 14:59 miconazole (From Monistat 3) Allergy Severe Other (See Verified 08/20/24 14:59 Comment) Penicillins Allergy Severe Anaphylaxsi Verified 08/20/24 14:59 s skin cleanser combination Allergy Severe Other (See Verified 08/20/24 14:59 no.17 (From Monistat 3) Comment) Home Medication ?Medication ?Instructions ?Recorded albuterol sulfate 90 mcg/actuation 2 puff inhalation PRN 03/06/14 aerosol inhaler cetirizine 10 mg capsule (Zyrtec) 10 mg PO DAILY 03/06/14 montelukast 10 mg tablet 10 mg PO DAILY 03/06/14 (Singulair) famotidine 40 mg tablet 40 mg PO DAILY 05/24/21 levothyroxine 25 mcg capsule 25 mcg PO DAILY 08/01/24 semaglutide 2 mg/dose (8 mg/3 mL) 2 mg subcut QWEEK 08/01/24 subcutaneous pen injector (Ozempic) bisacodyl 5 mg tablet,delayed 5 mg PO ONCE Colonoscopy Bowel 08/15/24 release Prep #4 tabs polyethylene glycol 3350 17 238 g PO ONCE #238 grams 08/15/24 gram/dose oral powder Current Visit Medications: Current Medications Generic Name Dose Route Start Last Admin Trade Name Freq PRN Reason Stop Dose Admin Ringer's Solution 1,000 mls @ 80 mls/hr 08/22/24 06:00 08/22/24 08:50 IV 08/22/24 23:59 80 mls/hr INFUSION KENDRA Administration IV Miscellaneous Supplies 1 each 08/22/24 06:00 Iv Access IV 08/22/24 23:59 DIRECTED KENDRA Sodium Chloride 0 ml 08/22/24 06:00 Normal Saline Flush 10 Ml Syr IV 08/22/24 23:59 PRN PRN Sodium Chloride 0 ml 08/22/24 06:00 Normal Saline 10 Ml Vial IJ 08/22/24 23:59 DIRECTED PRN Sterile Water 0 ml 08/22/24 06:00 Water,Injection,Sterile 10 Ml Vial IJ 08/22/24 23:59 DIRECTED PRN PFSH Active Problems Active Problems: Problem Status Onset Code Obesity Chronic E66.9 Diarrhea Acute R19.7 Viral syndrome Acute B34.9 S/P laparoscopic cholecystectomy Acute Z90.49 Allergic rhinitis Acute 09/15/13 J30.9 Asthma Acute 09/15/13 J45.909 Acute cholecystitis Acute K81.0 Hypokalemia Resolved E87.6 Leukocytosis (leucocytosis) Acute D72.829 High anion gap metabolic acidosis Resolved E87.2 Lactic acid acidosis Resolved E87.2 Acute abdominal pain in right upper quadrant Acute R10.11 Medical History Medical History Insomnia Mixed anxiety and depressive disorder Hypothyroidism Atypical nevi Elevated blood pressure reading Asthma Surgical History Surgical History Hx laparoscopic cholecystectomy (08/19/18) Dr Praneeth [place], [facility] Ligation of fallopian tube Tobacco Smoking/Tobacco Use Status: Former Tobacco Use Alcohol Alcohol Intake: current Alcohol intake frequency: a few times a month Substance Use Substance use: Never Substance use type: does not use Vital Signs and Lab Results Vital Signs Most Recent Vital Signs in EMR: Most Recent Vital Signs Temp Pulse Resp BP Pulse Ox 36.7 C 82 18 137/87 97 08/22/24 08:15 08/22/24 08:15 08/22/24 08:15 08/22/24 08:15 08/22/24 08:15 Point of Care Results Point of Care Results: POC- Test(urine) Negative 08/22/24 08:51 Lab Results Blood Type / Crossmatch: No Data to Display Complete Blood Count: No Data to Display Complete Metabolic Panel: No Data to Display Liver Function Panel: No Data to Display Coagulation Panel: No Data to Display Cardiac Panel: No Data to Display Arterial Blood Gas: No Data to Display Venous Blood Gas: No Data to Display Pancreas Panel: No Data to Display Thyroid Panel: No Data to Display Infectious Disease: No Data to Display Blood Cultures: No Data to Display Toxicology Panel: No Data to Display Panel: No Data to Display Anesthesia Assessment and Plan Anesthesia History Personal History: No History of Anesthesia Complications Family History: No Family History of Anesthesia Complications Exercise Tolerance Exercise Tolerance: Metabolic Equivalents>4 Pertinent Negatives Pertinent Negatives: No Symptoms of GERD Cardiac & Pulmonary Exam Cardiac Exam: Normal S1/S2 Heart Sounds Pulmonary Exam: Clear Bilateral Breath Sounds Implantable Cardiac Device Does patient have a Pacemaker or an ICD?: No Airway Exam Known Difficult Airway: No Mallampati Class: 2 Mouth Opening: Normal (> 3cm) Thyromental Distance: Greater than 3 cm Neck Range of Motion: Full ROM Neck Circumference: Normal Teeth Condition: Normal Dentition ASA Classification ASA Score: ASA 2 Emergency Case?: No NPO Status NPO Status: NPO Clears >2 hours, Solids >8 hours Status Status: Negative HCG Anesthesia Plan Resuscitation Status: Full Code Anesthesia Technique: General Anesthesia Airway Planned: Natural Airway Monitors Used: Standard Monitors
[2024-08-22 09:55] VITALS: BMI 37.5
[2024-08-22] MEDS: Endoscopic Tattoo 5 ML SYR IJ (10:50)
--- NOTE | 2024-08-22 10:55 | W.COLOREPORT ---
Date of service: 08/22/24 Time of Service: 10:55 Colonoscopy Report Date of procedure: 08/22/24 Pre-op diagnosis general: Screening for colon polyps Post-op diagnosis procedure note: other (Colon polyps) Procedure: Colonoscopy with snare polypectomy. And tattoo Surgeon: Miriam Weber Anesthesia Type: MAC Pathology: other (Pedunculated polyp cecum, pedunculated polyp proximal sigmoid colon) Complications: None Disposition: same day Indications: Patient presents for screening colonoscopy with minor postprandial abdominal discomfort Findings: NIELS: Normal. 1 cm pedunculated polyp in the cecum adjacent to ileocecal valve was removed with cautery snare polypectomy technique. Specimen is retrieved completely and sent for pathology. 2 cm pedunculated polyp was removed from the proximal sigmoid colon using a cautery snare polypectomy technique. Specimen was placed in a Paredes net, removed from the colon and sent for pathology. Paola ink tattoo was applied at the base of the stalk as well as the mucosa opposite and slightly proximal to the polyp. A total of 2, 1 cc aliquots were injected. The patient was noted to have a short segment of sigmoid diverticulosis. The bowel preparation was excellent. Procedure Description: Patient is brought to the procedure room and time out is performed confirming patient identity, nature of procedure. Patient is connected to monitoring devices including O2 sat, EKG and given supplemental oxygen per anesthesia. After appropriate anesthetic is obtained, patient is placed in the left lateral decubitus position and digital rectal exam performed with the findings noted above. The colonoscope is inserted and guided under direct vision to the proximal colon as confirmed by presence of the appendiceal orifice and the ileocecal valve. The colonoscope is then slowly withdrawn , inspecting all aspects of the mucosa completely. Findings and any associated intervention, are noted above. The patient tolerated the procedure well and is transferred back to the [facility] in stable condition.
[2024-08-22 11:12] VITALS: BP 128/107; PULSE 69; RESP 22; TEMP 36; O2SAT 99
[2024-08-22 11:30] VITALS: BP 116/61; PULSE 62; RESP 18; TEMP 36; O2SAT 99
[2024-08-22 12:04] VITALS: BP 120/80; PULSE 75; RESP 18; TEMP 36.2; O2SAT 99
--- NOTE | 2024-08-22 12:07 | W.ANESPOSTOP ---
Postoperative Evaluation Date, Time and Location Date Performed: 08/22/24 Time Performed: 12:07 Patient Location: Day Surgery Unit Vital Signs Most Recent Imported Vital Signs: Most Recent Vital Signs Temp Pulse Resp BP Pulse Ox 36 C L 62 18 116/61 99 08/22/24 11:30 08/22/24 11:30 08/22/24 11:30 08/22/24 11:30 08/22/24 11:30 Pain Score Most Recent Pain Score: Most Recent Pain Score Pain Level 1 08/22/24 11:30 Assessment Mental Status: Awake (Alert & Oriented to Patient Baseline) Airway and Respiratory Function: Patent airway with normal (patient baseline) respiratory exam Cardiovascular Function: Hemodynamically Stable Hydration Status: Adequately Hydrated Nausea & Vomiting: No Nausea or Vomiting Pain: Pt. Denies Any Pain Peripheral Nerve Block: Patient did not receive a nerve block
== END 2024-08-22 13:40 | disposition home or self-care (01) ==
LOC: SUR 13:39
PROVIDERS: PCP Family Medicine; Visit Provider Surgery
PROC: 0DJD8ZZ Inspection of Lower Intestinal Tract, Via Natural or Artificial Opening Endoscopic (ICD-10-PCS; CPT 45378; principal; 2024-08-22 09:30)
DX: Z12.11 Encounter for screening for malignant neoplasm of colon (principal); D37.4 Neoplasm of uncertain behavior of colon; R10.9 Unspecified abdominal pain
CPT/HCPCS: 45385; 45381; 81025; 88305; J1100; J1885; J2003; J2405; J2704

== ENCOUNTER 2025-03-17 09:45 | Outpatient (CLI) | payer BC, SELFPAY ==
--- NOTE | 2025-03-17 | DI.MAMMO_ITS ---
Exam(s) MAMMO SCREENING EXAM: MAMMO SCREENING CLINICAL HISTORY: SCREENING MAMMO Z12.31 TECHNIQUE: Bilateral full field digital CC and MLO mammographic images were obtained with 3D tomosynthesis and utilizing computer aided detection (CAD). COMPARISON: Comparison is made with prior examinations. FINDINGS: Masses/Architectural Distortion: No suspicious masses or areas of architectural distortion are present. There is a stable area of nodularity in the left retroareolar region. Microcalcifications: No suspicious pleomorphic-type are seen. Skin Thickening/Nipple Retraction: None. IMPRESSION: 1. No significant interval change with no specific features of malignancy noted. 2. Unless there is more urgent need, screening mammography is recommended, as per [place] [employer] guidelines. BI-RADS Category 2 - Benign Findings Breast Density - Category B - There are scattered areas of fibroglandular density. Breast density Category C or D implies that the patient has dense breast tissue. Dense breast tissue can make it harder to find cancer on a mammogram. Dense breast tissue is also associated with an increased risk of breast cancer. This information about the result of the mammogram report was provided to the patient to raise their awareness. Use this report when you speak with the patient about their risks for breast cancer, which includes their family history. At that time, you may recommend additional screening tests (Ultrasound or MRI) as these tests may add significant information. A negative radiographic report should not delay biopsy if a dominant or clinically suspicious mass is present. Up to ten percent of cancers are not identified on mammography. A negative report may reinforce clinical impression. Adenosis and dense breasts may obscure an underlying neoplasm. False positive reports average 6 to 10%. Patient will receive a letter notifying them of these results.
== END 2025-03-17 10:05 ==
LOC: DI 09:46
PROVIDERS: PCP Family Medicine; Visit Provider Family Medicine
DX: Z12.31 Encounter for screening mammogram for malignant neoplasm of breast (principal); R92.323 Mammographic fibroglandular density, bilateral breasts
CPT/HCPCS: 77063; 77067